=== PATIENT | female | born 1970 | race Caucasian/White ===

== ENCOUNTER 2016-06-27 23:17 | Emergency (ER) | payer OTHER ==
[2016-06-27 23:28] VITALS: RESP 18
[2016-06-27] MEDS ORDERED: MORPHINE SULFATE 2 MG/ML SYRINGE IVP STA (23:34)
[2016-06-27] MEDS ORDERED: ONDANSETRON 4 MG/2 ML VIAL IVP STA (23:34)
[2016-06-27] MEDS ORDERED: RX INFO: IV CONTRAST WAS GIVEN 1 EACH MISC MISCELLANE PRN (23:34)
[2016-06-27] MEDS ORDERED: SODIUM CHLORIDE 0.9% 1,000 ML IV STA (23:34)
--- NOTE | 2016-06-27 23:43 | ED ---
General Adult HPI - General Chief complaint: Abdominal Pain Stated complaint: Abd Pain Time Seen by Provider: 06/27/16 23:19 Source: patient, RN notes reviewed Mode of arrival: ambulatory Limitations: no limitations - History of Present Illness Initial comments: 45-year-old female presents emergency Department with chief complaint of abdominal discomfort, diarrhea and headaches. Patient states that she's been having increasing headaches the last few months. Patient states she has not seen anybody for these headaches. She states she does have a history of MS and has repeat MRIs every year though she's not had one in almost over a year. Patient states her diffuse headaches and states that she takes Advil for it though they're so severe she said to hold screenings. states she has visual loss secondary to her MS which is chronic she has known Q changes. Denies any focal weakness at this time. Patient denies fever, chills, neck stiffness. Patient states that over the last 2 days she's had severe diarrhea. Patient denies any antibiotic use or traveling. She states she had a bout of this over the summer which resolved by itself. Patient states that she has left lower quadrant abdominal discomfort. She denies any history of diverticulitis. Denies any dysuria, hematuria. Denies any vaginal bleeding or vaginal discharge. - Related Data Home Medications Medication Instructions Recorded Confirmed Avonex 1 injection IM TU@1900 10/02/14 04/06/16 FLUoxetine HCL [PROzac] 60 mg PO QAM 10/02/14 04/06/16 Ferrous Sulfate [Feosol] 325 mg PO BID 10/02/14 04/06/16 Insulin Glargine [Lantus] 10 units SQ QAM 10/02/14 04/06/16 Lisinopril [Prinivil] 20 mg PO QAM 10/02/14 04/06/16 Pravastatin Sodium [Pravachol] 20 mg PO HS 10/02/14 04/06/16 clonazePAM [Clonazepam] 1 mg PO HS 10/02/14 04/06/16 lamoTRIgine [LaMICtal] 100 mg PO HS 10/02/14 04/06/16 metFORMIN HCL [Glucophage] 1,000 mg PO AC-BID 10/02/14 04/06/16 sitaGLIPtin [Januvia] 100 mg PO DAILY 10/02/14 04/06/16 amLODIPine [Norvasc] 5 mg PO HS 12/06/14 04/06/16 Gabapentin [Neurontin] 400 mg PO TID 03/02/15 04/06/16 Insulin Glargine [Lantus] 40 unit SQ HS 03/02/15 04/06/16 Aspirin 81 mg PO DAILY 08/21/15 04/06/16 lamoTRIgine [LaMICtal] 150 mg PO QAM 08/21/15 04/06/16 Glimepiride [Amaryl] 2 mg PO BID 10/29/15 04/06/16 Previous Rx's Medication Instructions Recorded Dicyclomine [Bentyl] 10 mg PO TID #20 capsule 01/17/16 Metoclopramide HCl [Reglan] 10 mg PO Q8H #10 tablet 01/17/16 Cephalexin [Keflex] 500 mg PO Q6HR #40 cap 04/06/16 Hydrocodone/Acetaminophen [[place] 1 tab PO Q6HR PRN #20 tab 04/06/16 5-325] Allergies Allergy/AdvReac Type Severity Reaction Status Date / Time No Known Allergies Allergy Verified 06/27/16 23:27 Review of Systems ROS Statement: Those systems with pertinent positive or pertinent negative responses have been documented in the HPI. ROS Other: All systems not noted in ROS Statement are negative. Past Medical History Past Medical History: Diabetes Mellitus, Hyperlipidemia, Hypertension Additional Past Medical History / Comment(s): M.S, anemia History of Any Multi-Drug Resistant Organisms: None Reported Past Surgical History: Tubal Ligation, Uterine Ablation Additional Past Surgical History / Comment(s): TEETH REMOVAL Past Psychological History: Anxiety, Bipolar, Depression Smoking Status: Current some day smoker Past Alcohol Use History: Rare Past Drug Use History: None Reported General Exam Limitations: no limitations General appearance: alert, in no apparent distress Head exam: Present: atraumatic, normocephalic, normal inspection Eye exam: Present: normal appearance, PERRL, EOMI. Absent: scleral icterus, conjunctival injection, periorbital swelling ENT exam: Present: mucous membranes moist, TM's normal bilaterally, other (No mastoid tenderness). Absent: normal oropharynx (Missing dentition) Neck exam: Present: normal inspection, full ROM. Absent: tenderness, meningismus, lymphadenopathy Respiratory exam: Present: normal lung sounds bilaterally. Absent: respiratory distress, wheezes, rales, rhonchi, stridor Cardiovascular Exam: Present: regular rate, normal rhythm, normal heart sounds. Absent: systolic murmur, diastolic murmur, rubs, gallop, clicks GI/Abdominal exam: Present: soft, tenderness (Moderate tenderness left lower quadrant), normal bowel sounds. Absent: distended, guarding, rebound, rigid Back exam: Absent: CVA tenderness (R), CVA tenderness (L) Neurological exam: Present: alert, oriented X3, CN II-XII intact, reflexes normal. Absent: motor sensory deficit Skin exam: Present: warm, dry, intact, normal color. Absent: rash Course Vital Signs 06/27/16 23:25 Temperature 97.9 F Pulse Rate 106 H Respiratory 18 Rate Blood Pressure 175/82 O2 Sat by Pulse 99 Oximetry Medical Decision Making - Medical Decision Making 45-year-old female presented for headaches, abdominal pain. Patient CT of the brain shows no acute abnormality's. Patient has headaches most likely related to her MS patient will follow-up with a neurologist. Patient CT of abdomen and pelvis does not show any evidence of diverticulitis or any other acute abnormality's. Patient has a viral diarrhea. Patient will be discharged with follow-up patient agreed to plan AND transfer. - Lab Data Result diagrams: 06/27/16 23:46 06/27/16 23:46 Lab Results 06/27/16 06/27/16 06/27/16 Range/Units 23:46 23:46 23:46 WBC 13.5 H (3.8-10.6) k/uL RBC 4.12 (3.80-5.40) m/uL Hgb 11.5 (11.4-16.0) gm/dL Hct 34.9 (34.0-46.0) % MCV 84.7 (80.0-100.0) fL MCH 27.8 (25.0-35.0) pg MCHC 32.8 (31.0-37.0) g/dL RDW 14.9 (11.5-15.5) % Plt Count 270 (150-450) k/uL Neutrophils % 69 % Lymphocytes % 23 % Monocytes % 4 % Eosinophils % 3 % Basophils % 1 % Neutrophils # 9.3 H (1.3-7.7) k/uL Lymphocytes # 3.2 (1.0-4.8) k/uL Monocytes # 0.5 (0-1.0) k/uL Eosinophils # 0.4 (0-0.7) k/uL Basophils # 0.1 (0-0.2) k/uL Sodium 137 (137-145) mmol/L Potassium 4.8 (3.5-5.1) mmol/L Chloride 102 (98-107) mmol/L Carbon Dioxide 23 (22-30) mmol/L Anion Gap 12 mmol/L BUN 24 H (7-17) mg/dL Creatinine 1.20 H (0.52-1.04) mg/dL Est GFR (MDRD) Af Amer 59 (>60 ml/min/1.73 sqM) Est GFR (MDRD) Non-Af 49 (>60 ml/min/1.73 sqM) Glucose 247 H (74-99) mg/dL Calcium 9.2 (8.4-10.2) mg/dL Total Bilirubin 0.2 (0.2-1.3) mg/dL AST 20 (14-36) U/L ALT 35 (9-52) U/L Alkaline Phosphatase 130 H (38-126) U/L Total Protein 6.6 (6.3-8.2) g/dL Albumin 3.9 (3.5-5.0) g/dL Amylase 35 (30-110) U/L Lipase 155 (23-300) U/L Urine Color Light Yellow Urine Appearance Clear (Clear) Urine pH 5.5 (5.0-8.0) Ur Specific [place] 1.007 (1.001-1.035) Urine Protein 2+ H (Negative) Urine Glucose (UA) Negative (Negative) Urine Ketones Negative (Negative) Urine Blood Small H (Negative) Urine Nitrate Negative (Negative) Urine Bilirubin Negative (Negative) Urine Urobilinogen <2.0 (<2.0) mg/dL Ur Leukocyte Esterase Small H (Negative) Urine RBC 2 (0-5) /hpf Urine WBC 2 (0-5) /hpf Ur Squamous Epith Cells 3 (0-4) /hpf Urine Bacteria Rare H (None) /hpf Urine Mucus Rare H (None) /hpf Disposition Clinical Impression: Diarrhea, Abdominal pain, Frequent headaches Disposition: HOME SELF-CARE Condition: Stable Instructions: Acute Diarrhea (ED) Additional Instructions: Please return to the Emergency Department if symptoms worsen or any other concerns. Time of Disposition: 00:48
[2016-06-27 23:59] LABS: Basophils # (A) 0.1 k/uL (0-0.2); Basophils % (A) 1 %; CH 28.3; CHCM 33.6; Eosinophils # (A) 0.4 k/uL (0-0.7); Eosinophils % (A) 3 %; HCT 34.9 % (34.0-46.0); HDW 2.86; HGB 11.5 gm/dL (11.4-16.0); Luc # (Auto) 0.12; Luc % (Auto) 1; Lymphocytes # (A) 3.2 k/uL (1.0-4.8); Lymphocytes % (A) 23 %; MCH 27.8 pg (25.0-35.0); MCHC 32.8 g/dL (31.0-37.0); MCV 84.7 fL (80.0-100.0); Mean Platelet Volume 7.1; Monocytes # (A) 0.5 k/uL (0-1.0); Monocytes % (A) 4 %; Neutrophils # (A) 9.3 k/uL (1.3-7.7); Neutrophils % (A) 69 %; RBC 4.12 m/uL (3.80-5.40); RDW 14.9 % (11.5-15.5); WBC 13.5 k/uL (3.8-10.6); WBC (Perox) 13.71
[2016-06-28 00:11] LABS: Calcium 9.2 mg/dL (8.4-10.2); Potassium 4.8 mmol/L (3.5-5.1); Total Bilirubin 0.2 mg/dL (0.2-1.3); Total Protein 6.6 g/dL (6.3-8.2)
[2016-06-28 00:18] LABS: Appearance,Urine Clear (Clear); Bacteria,Urine Rare /hpf; Bilirubin,Urine Negative (Negative); Glucose,Urine (UA) Negative (Negative); Ketones,Urine Negative (Negative); Leukocyte Esterase,Urine Small (Negative); Mucus,Urine Rare /hpf; Nitrite,Urine Negative (Negative); PH, Urine 5.5 (5.0-8.0); Particle Count 1814; Protein,Urine 2+ (Negative); RBC,Urine 2 /hpf (0-5); Specific Gravity,Urine 1.007 (1.001-1.035); Squamous Epithelial Cell,Urine 3 /hpf (0-4); UA Billing (MACRO vs. MICRO) MICRO; Urobilinogen,Urine <2.0 mg/dL (<2.0); WBC,Urine 2 /hpf (0-5)
--- NOTE | 2016-06-28 00:25 | CT ---
EXAMINATION TYPE: CT brain wo con DATE OF EXAM: 06/28/2016 12:19 AM COMPARISON: 08/21/2015 HISTORY: headache/MS CT DLP: 1029.90 mGycm Automated exposure control for dose reduction was used. FINDINGS: There is hypodensity in the white matter around the occipital horn of the left lateral ventricle. The re is no mass effect or midline shift. There is no sign of intracranial hemorrhage. There is a 1 cm h ypodensity at the locke-white matter junction left posterior parietal lobe. The calvarium is intact. IMPRESSION: Hypodense white matter as above. 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 This appears stable compared to 08/21/2015. Hypodense left posterior parietal white matter focus i s stable and could relate to infarct or demyelinating disease. No acute intracranial abnormality seen .
--- NOTE | 2016-06-28 00:28 | CT ---
EXAMINATION TYPE: CT abdomen pelvis w con DATE OF EXAM: 06/28/2016 12:21 AM COMPARISON: 08/21/2015 HISTORY: Left sided abd pain CT DLP: 1729.20 mGycm Automated exposure control for dose reduction was used. TECHNIQUE: Helical acquisition of images was performed from the lung bases through the pelvis. CONTRAST: Performed without Oral Contrast and with IV Contrast, patient injected with 100 mL of Omnipaque 300. FINDINGS: The lung bases are clear. There is no pleural effusion. Liver spleen pancreas and gallbladder appear normal. Bile ducts are not dilated. There is no adrenal mass. There is normal contrast opacification of the kidneys. There is no hydronephrosis. There is no retroperitoneal adenopathy. There is no ascit es. Appendix appears normal. I see no intestinal wall thickening. There are no dilated loops. There a re clips from tubal ligation. Latter distends smoothly. There is no evidence of a pelvic mass. I see no bony destructive process. IMPRESSION: NEGATIVE CT SCAN OF THE ABDOMEN AND PELVIS. NO ADVERSE CHANGE COMPARED TO OLD EXAM.
[2016-06-28 00:56] VITALS: BP 175/79; PULSE 91; TEMP 97.7
== END 2016-06-28 00:57 | disposition home or self-care (01) ==
LOC: EC 23:17
DX: A08.4 Viral intestinal infection, unspecified (principal); R10.9 Unspecified abdominal pain; R51 Headache; G35 Multiple sclerosis; E78.5 Hyperlipidemia, unspecified; I10 Essential (primary) hypertension; D64.9 Anemia, unspecified; H54.7 Unspecified visual loss; E11.9 Type 2 diabetes mellitus without complications; F32.9 Major depressive disorder, single episode, unspecified; Z79.899 Other long term (current) drug therapy; Z79.4 Long term (current) use of insulin; Z79.82 Long term (current) use of aspirin; F17.200 Nicotine dependence, unspecified, uncomplicated
CPT/HCPCS: 36415; 80053; 82150; 83690; 85025; 81001; 70450; 74177; 96374; 96375; 99284; 96360; J2405; J2270; Q9967

== ENCOUNTER → 2016-08-07 | Outpatient (CLI) | payer OTHER ==
--- NOTE | 2016-08-07 12:32 | MR ---
EXAMINATION TYPE: MR brain wo/w con DATE OF EXAM: 08/07/2016 9:40 AM COMPARISON: Prior MRI brain October 30, 2015. HISTORY: MS, F/U TECHNIQUE: Multiplanar, multisequence images of the brain and brainstem is performed without and with IV contras t, utilizing 20 mL intravenous MultiHance gadolinium contrast is administered intravenously. Demyeli nating disease protocol with additional Sagittal Flair sequence performed. FINDINGS: T2 Lesions Present : Yes Approximate Number of Lesions: Difficult to accurately count due to confluent periventricular appeara nce, estimate approximately 15 lesions redemonstrated Locations Identified : Predominantly periventricular and pericallosal involvement redemonstrated. Size of Reference Lesion(s): 1. 1.1 cm x 0.9 cm on axial image 20 and sagittal image 14 left parietal-occipital periventricular l esion stable 2 0.8 cm x 0.6 cm x 0.8 cm on axial image 23 and sagittal image 24 posterior deep right frontal les ion stable. Enhancing Lesion(s) Present: No T1 Hypointense Lesion(s) Present: Yes Change from Prior: Stable Diffusion weighted images demonstrate no evidence of a recent infarct or other diffusion abnormality. There is no worrisome extra-axial fluid collection. The ventricular system and cisternal spaces ar e normal in size and appearance. The brain volume is age appropriate. There is old area of infarct l eft occipital lobe redemonstrated. Midline structures demonstrate normal morphology. The craniocervical junction appears within normal limits. Post contrast images demonstrate no abnormal enhancement. The dural venous sinuses appear pa tent. There is new mild to moderate mucosal thickening involving the ethmoid and maxillary sinuses bi laterally as well as involving the right frontal sinus. The globes are intact bilaterally. IMPRESSION: 1. Moderate white matter changes likely on basis of patient's known multiple sclerosis redemonstrated felt stable without new or enhancing lesions seen. 2. New chronic paranasal sinus disease noted as detailed above.
== END | disposition home or self-care (01) ==
LOC: RADMRIMAIN 08:21
PROVIDERS: ATTEND Psychiatry & Neurology Neurology
DX: R90.82 White matter disease, unspecified (principal)
CPT/HCPCS: 70553; A9577

== ENCOUNTER 2016-12-21 05:40 | Inpatient (IN) | payer OTHER ==
[2016-12-21] MEDS ORDERED: SODIUM CHLORIDE 0.9% 500 ML IV STA (06:03)
[2016-12-21] MEDS ORDERED: PANTOPRAZOLE 40 MG/10 ML VIAL IVP STA (06:03)
[2016-12-21] MEDS ORDERED: ONDANSETRON ODT 8 MG TAB.RAPDIS PO STA (06:03)
[2016-12-21] MEDS ORDERED: SODIUM CHLORIDE 0.9% 1,000 ML IV STA (06:03)
[2016-12-21 06:14] LABS: Basophils % (A) 0 %; CH 28.7; Eosinophils # (A) 0.3 k/uL (0-0.7); Eosinophils % (A) 3 %; HCT 33.5 % (34.0-46.0); HDW 3.01; HGB 11.6 gm/dL (11.4-16.0); Luc # (Auto) 0.12; Luc % (Auto) 1; Lymphocytes # (A) 2.6 k/uL (1.0-4.8); Lymphocytes % (A) 24 %; MCH 29.4 pg (25.0-35.0); MCHC 34.7 g/dL (31.0-37.0); MCV 84.6 fL (80.0-100.0); Mean Platelet Volume 6.7; Monocytes # (A) 0.5 k/uL (0-1.0); Monocytes % (A) 5 %; Neutrophils # (A) 7.4 k/uL (1.3-7.7); Neutrophils % (A) 68 %; RBC 3.96 m/uL (3.80-5.40); RDW 14.4 % (11.5-15.5); WBC (Perox) 11.15
[2016-12-21 06:22] LABS: ALT 40 U/L (9-52); AST 18 U/L (14-36); Alkaline Phosphatase 130 U/L (38-126); Amylase 36 U/L (30-110); Anion Gap 12 mmol/L; Blood Urea Nitrogen 29 mg/dL (7-17); Calcium 9.4 mg/dL (8.4-10.2); Carbon Dioxide 22 mmol/L (22-30); Chloride 104 mmol/L (98-107); Glucose 218 mg/dL (74-99); Non-African American GFR(MDRD) 53 (>60 ml/min/1.73 sqM); Potassium 4.6 mmol/L (3.5-5.1); Sodium 138 mmol/L (137-145); Total Bilirubin 0.2 mg/dL (0.2-1.3); Total Protein 6.8 g/dL (6.3-8.2)
--- NOTE | 2016-12-21 06:23 | ED ---
General Adult HPI - General Chief complaint: Nausea/Vomiting/Diarrhea Stated complaint: Vomiting/Swelling Legs/Feet Time Seen by Provider: 12/21/16 06:02 Source: patient, RN notes reviewed, old records reviewed Mode of arrival: ambulatory Limitations: no limitations - History of Present Illness Initial comments: This is a 46-year-old female in the ER for evaluation of severe abdominal pain nausea vomiting. Patient has no prior history of similar issues. Denies fever or surgical history. She has been taking Augmentin for this pain with no help. Unknown exact exact cause or reason for taking Augmentin. Patient denies drugs or alcohol. Denies family members with similar symptoms patient does have history of diabetes have blood pressure high cholesterol. Patient also suffers from MS, patient's main complaint today is lower extremity edema severe pain numbness tingling or weakness. Patient's concern for severe MS exacerbation and would like to see Dr. [place] - Related Data Home Medications Medication Instructions Recorded Confirmed Avonex 1 injection IM TU@1900 10/02/14 12/21/16 Ferrous Sulfate [Feosol] 325 mg PO BID 10/02/14 12/21/16 Insulin Glargine [Lantus] 15 units SQ QAM 10/02/14 12/21/16 Lisinopril [Prinivil] 20 mg PO QAM 10/02/14 12/21/16 Pravastatin Sodium [Pravachol] 20 mg PO HS 10/02/14 12/21/16 clonazePAM [Clonazepam] 1 mg PO HS 10/02/14 12/21/16 lamoTRIgine [LaMICtal] 100 mg PO HS 10/02/14 12/21/16 metFORMIN HCL [Glucophage] 1,000 mg PO AC-BID 10/02/14 12/21/16 sitaGLIPtin [Januvia] 100 mg PO DAILY 10/02/14 12/21/16 amLODIPine [Norvasc] 5 mg PO HS 12/06/14 12/21/16 Gabapentin [Neurontin] 400 mg PO TID 03/02/15 12/21/16 Insulin Glargine [Lantus] 40 unit SQ HS 03/02/15 12/21/16 Aspirin 81 mg PO DAILY 08/21/15 12/21/16 lamoTRIgine [LaMICtal] 150 mg PO QAM 08/21/15 12/21/16 Glimepiride [Amaryl] 2 mg PO BID 10/29/15 12/21/16 Amitriptyline HCl [Elavil] 25 mg PO HS 07/22/16 12/21/16 Previous Rx's Medication Instructions Recorded Metoclopramide HCl [Reglan] 10 mg PO Q8H #10 tablet 01/17/16 Hydrocodone/Acetaminophen [[place] 1 tab PO Q6HR PRN #20 tab 04/06/16 5-325] Allergies Allergy/AdvReac Type Severity Reaction Status Date / Time No Known Allergies Allergy Verified 12/21/16 05:45 Review of Systems ROS Statement: Those systems with pertinent positive or pertinent negative responses have been documented in the HPI. ROS Other: All systems not noted in ROS Statement are negative. Past Medical History Past Medical History: Diabetes Mellitus, Hyperlipidemia, Hypertension Additional Past Medical History / Comment(s): MS, anemia History of Any Multi-Drug Resistant Organisms: None Reported Past Surgical History: Tubal Ligation, Uterine Ablation Additional Past Surgical History / Comment(s): TEETH REMOVAL Past Psychological History: Anxiety, Bipolar, Depression Smoking Status: Former smoker General Exam Limitations: no limitations General appearance: alert, in no apparent distress Head exam: Present: atraumatic, normocephalic, normal inspection Eye exam: Present: normal appearance, PERRL, EOMI. Absent: scleral icterus, conjunctival injection, periorbital swelling ENT exam: Present: normal exam, mucous membranes moist Neck exam: Present: normal inspection. Absent: tenderness, meningismus, lymphadenopathy Respiratory exam: Present: normal lung sounds bilaterally. Absent: respiratory distress, wheezes, rales, rhonchi, stridor Cardiovascular Exam: Present: regular rate, normal rhythm, normal heart sounds. Absent: systolic murmur, diastolic murmur, rubs, gallop, clicks GI/Abdominal exam: Present: soft, normal bowel sounds. Absent: distended, tenderness, guarding, rebound, rigid Extremities exam: Present: normal inspection, full ROM, normal capillary refill. Absent: tenderness, pedal edema, joint swelling, calf tenderness Back exam: Present: normal inspection Neurological exam: Present: alert, oriented X3, CN II-XII intact Psychiatric exam: Present: normal affect, normal mood Skin exam: Present: warm, dry, intact, normal color. Absent: rash Course Vital Signs 12/21/16 12/21/16 05:42 06:53 Temperature 97.4 F L Pulse Rate 92 88 Respiratory 18 18 Rate Blood Pressure 210/95 163/75 O2 Sat by Pulse 100 97 Oximetry Medical Decision Making - Medical Decision Making [id number] with history of MS coming with MS exacerbations secondary to lower extremity pain and paresthesias. Patient will be admitted for neurological evaluation - Lab Data Result diagrams: 12/21/16 06:05 12/21/16 06:05 Lab Results 12/21/16 12/21/16 12/21/16 Range/Units 06:05 06:05 06:05 WBC 11.0 H (3.8-10.6) k/uL RBC 3.96 (3.80-5.40) m/uL Hgb 11.6 (11.4-16.0) gm/dL Hct 33.5 L (34.0-46.0) % MCV 84.6 (80.0-100.0) fL MCH 29.4 (25.0-35.0) pg MCHC 34.7 (31.0-37.0) g/dL RDW 14.4 (11.5-15.5) % Plt Count 333 (150-450) k/uL Neutrophils % 68 % Lymphocytes % 24 % Monocytes % 5 % Eosinophils % 3 % Basophils % 0 % Neutrophils # 7.4 (1.3-7.7) k/uL Lymphocytes # 2.6 (1.0-4.8) k/uL Monocytes # 0.5 (0-1.0) k/uL Eosinophils # 0.3 (0-0.7) k/uL Basophils # 0.0 (0-0.2) k/uL Sodium 138 (137-145) mmol/L Potassium 4.6 (3.5-5.1) mmol/L Chloride 104 (98-107) mmol/L Carbon Dioxide 22 (22-30) mmol/L Anion Gap 12 mmol/L BUN 29 H (7-17) mg/dL Creatinine 1.10 H (0.52-1.04) mg/dL Est GFR (MDRD) Af Amer >60 (>60 ml/min/1.73 sqM) Est GFR (MDRD) Non-Af 53 (>60 ml/min/1.73 sqM) Glucose 218 H (74-99) mg/dL Plasma Lactic Acid [place] (0.7-2.0) mmol/L Calcium 9.4 (8.4-10.2) mg/dL Total Bilirubin 0.2 (0.2-1.3) mg/dL AST 18 (14-36) U/L ALT 40 (9-52) U/L Alkaline Phosphatase 130 H (38-126) U/L Total Creatine Kinase 72 (30-135) U/L CK-MB (CK-2) 2.0 (0.0-2.4) ng/mL CK-MB (CK-2) Rel Index 2.8 Troponin I <0.012 (0.000-0.034) ng/mL Total Protein 6.8 (6.3-8.2) g/dL Albumin 4.1 (3.5-5.0) g/dL Amylase 36 (30-110) U/L Lipase 171 (23-300) U/L Urine Color Urine Appearance (Clear) Urine pH (5.0-8.0) Ur Specific [place] (1.001-1.035) Urine Protein (Negative) Urine Glucose (UA) (Negative) Urine Ketones (Negative) Urine Blood (Negative) Urine Nitrite (Negative) Urine Bilirubin (Negative) Urine Urobilinogen (<2.0) mg/dL Ur Leukocyte Esterase (Negative) Urine RBC (0-5) /hpf Urine WBC (0-5) /hpf Ur Squamous Epith Cells (0-4) /hpf Urine HCG, Qual (Not Detectd) 12/21/16 12/21/16 12/21/16 Range/Units 06:05 06:10 06:10 WBC (3.8-10.6) k/uL RBC (3.80-5.40) m/uL Hgb (11.4-16.0) gm/dL Hct (34.0-46.0) % MCV (80.0-100.0) fL MCH (25.0-35.0) pg MCHC (31.0-37.0) g/dL RDW (11.5-15.5) % Plt Count (150-450) k/uL Neutrophils % % Lymphocytes % % Monocytes % % Eosinophils % % Basophils % % Neutrophils # (1.3-7.7) k/uL Lymphocytes # (1.0-4.8) k/uL Monocytes # (0-1.0) k/uL Eosinophils # (0-0.7) k/uL Basophils # (0-0.2) k/uL Sodium (137-145) mmol/L Potassium (3.5-5.1) mmol/L Chloride (98-107) mmol/L Carbon Dioxide (22-30) mmol/L Anion Gap mmol/L BUN (7-17) mg/dL Creatinine (0.52-1.04) mg/dL Est GFR (MDRD) Af Amer (>60 ml/min/1.73 sqM) Est GFR (MDRD) Non-Af (>60 ml/min/1.73 sqM) Glucose (74-99) mg/dL Plasma Lactic Acid [place] 0.9 (0.7-2.0) mmol/L Calcium (8.4-10.2) mg/dL Total Bilirubin (0.2-1.3) mg/dL AST (14-36) U/L ALT (9-52) U/L Alkaline Phosphatase (38-126) U/L Total Creatine Kinase (30-135) U/L CK-MB (CK-2) (0.0-2.4) ng/mL CK-MB (CK-2) Rel Index Troponin I (0.000-0.034) ng/mL Total Protein (6.3-8.2) g/dL Albumin (3.5-5.0) g/dL Amylase (30-110) U/L Lipase (23-300) U/L Urine Color Colorless Urine Appearance Clear (Clear) Urine pH 5.5 (5.0-8.0) Ur Specific [place] 1.005 (1.001-1.035) Urine Protein 2+ H (Negative) Urine Glucose (UA) Negative (Negative) Urine Ketones Negative (Negative) Urine Blood Trace H (Negative) Urine Nitrite Negative (Negative) Urine Bilirubin Negative (Negative) Urine Urobilinogen <2.0 (<2.0) mg/dL Ur Leukocyte Esterase Trace H (Negative) Urine RBC 1 (0-5) /hpf Urine WBC <1 (0-5) /hpf Ur Squamous Epith Cells 1 (0-4) /hpf Urine HCG, Qual Not Detected (Not Detectd) Disposition Clinical Impression: Exacerbation of multiple sclerosis Disposition: ADMITTED IP TO THIS HOSP Condition: Fair Referrals: Aruna Boateng MD [Primary Care Provider] - 1-2 days
[2016-12-21 06:29] LABS: Appearance,Urine Clear (Clear); Bilirubin,Urine Negative (Negative); Glucose,Urine (UA) Negative (Negative); Ketones,Urine Negative (Negative); Leukocyte Esterase,Urine Trace (Negative); Nitrite,Urine Negative (Negative); PH, Urine 5.5 (5.0-8.0); Particle Count 1950; Protein,Urine 2+ (Negative); RBC,Urine 1 /hpf (0-5); Specific Gravity,Urine 1.005 (1.001-1.035); Squamous Epithelial Cell,Urine 1 /hpf (0-4); UA Billing (MACRO vs. MICRO) MICRO; Urobilinogen,Urine <2.0 mg/dL (<2.0); WBC,Urine <1 /hpf (0-5)
[2016-12-21 06:39] LABS: Creatine Kinase 72 U/L (30-135)
[2016-12-21 06:52] LABS: Troponin I <0.012 ng/mL (0.000-0.034)
[2016-12-21] MEDS ORDERED: methylPREDNISolone SOD SUCCI 250 MG in SODIUM CHLORIDE 0.9% 100 ML IVPB STA (07:11)
[2016-12-21] MEDS ORDERED: MORPHINE SULFATE 4 MG/ML SYRINGE IVP PRN (07:12)
[2016-12-21] MEDS ORDERED: MORPHINE SULFATE 4 MG/ML SYRINGE IVP STA (07:12)
--- NOTE | 2016-12-21 07:39 | XR ---
EXAM: XR Abdomen Complete, 2 or More Views CLINICAL HISTORY: Reason: abdominal pain TECHNIQUE: Frontal view of the abdomen/pelvis with upright view of the abdomen. COMPARISON: CT 06/28/16 and KUB 01/17/16. FINDINGS: Intraperitoneal space: No free air. Gastrointestinal tract: Moderate fecal loading. No dilation. Bones/joints: Multilevel degenerative changes of the spine. Pelvis: Tubal ligation clips seen. IMPRESSION: Moderate fecal loading.
--- NOTE | 2016-12-21 07:55 | US ---
EXAMINATION TYPE: US gallbladder DATE OF EXAM: 12/21/2016 COMPARISON: NONE CLINICAL HISTORY: 46-year-old female Nausea and vomiting. TECHNIQUE: Multiple sonographic images of the right upper quadrant are obtained. FINDINGS: CONSTRUCTION AND MAINTENANCE INSPECTOR NOTES: Morbidly obese patient, technically difficult and limited study. Liver Length: 19.1 cm Gallbladder Wall: 0.2 cm CBD: 2.3 mm Right Kidney: 11.3 x 4.6 x 4.5 cm Pancreas: Obscured by bowel gas Liver: Large and markedly echogenic and attenuating. This secondary limits assessment for focal lesio n. Gallbladder: No abnormal distention, wall thickening, pericholecystic fluid, or shadowing calculi. Evidence for sonographic Langston's sign: No CBD: not well visualized, visualized segment within normal limits. Right Kidney: No hydronephrosis. IMPRESSION: Hepatomegaly and severe hepatic steatosis. Correlate with LFTs, lipid profile, and patient risk facto rs.
[2016-12-21] MEDS: SODIUM CHLORIDE 0.9% 1,000 ML IV ONE ×2 (08:22→18:34)
[2016-12-21] MEDS ORDERED: LINAGLIPTIN 5 MG TABLET PO SCH (09:00)
[2016-12-21] MEDS ORDERED: Acetaminophen-Codeine 300-30mg TAB PO PRN (09:05)
[2016-12-21 09:22] VITALS: BMI 41.4
--- NOTE | 2016-12-21 11:01 | US ---
EXAMINATION TYPE: US venous doppler duplex LE BI DATE OF EXAM: 12/21/2016 10:09 AM COMPARISON: NONE CLINICAL HISTORY: 46-year-old female with Swelling SIDE PERFORMED: Bilateral TECHNIQUE: The lower extremity deep venous system is examined utilizing real time linear array sonog endy with graded compression, doppler sonography and color-flow sonography. FINDINGS: SENIOR NET PROGRAMMER NOTES: Morbidly obese patient. VESSELS IMAGED: External Iliac Vein (EIV) Common Femoral Vein Deep Femoral Vein Greater Saphenous Vein * Femoral Vein Popliteal Vein Small Saphenous Vein * Proximal Calf Veins (* superficial vessels) Right Leg: Negative for DVT Left Leg: Negative for DVT IMPRESSION: No evidence for DVT within the bilateral lower extremities imaged from the groin to the upper calves.
[2016-12-21] MEDS: INSULIN GLARGINE 100 UNIT/ML 10 ML VIAL SQ SCH (11:11)
[2016-12-21] MEDS: ENOXAPARIN 40 MG/0.4 ML SYRINGE SQ SCH (11:14)
[2016-12-21] MEDS: metFORMIN 500 MG TAB PO SCH ×2 (11:15→17:57)
[2016-12-21] MEDS: LINAGLIPTIN 5 MG TABLET PO SCH (12:22)
[2016-12-21] MEDS: LISINOPRIL 20 MG TAB PO SCH (12:22)
[2016-12-21 12:37] LABS: Glucose,Whole Blood 332 mg/dL (75-99)
[2016-12-21] MEDS: METOCLOPRAMIDE 10 MG TAB PO SCH ×3 (12:39→21:12)
[2016-12-21] MEDS ORDERED: INSULIN LISPRO (humaLOG) 300 UNIT/3 ML VIAL SQ ONE ×2 (12:46→15:16)
[2016-12-21] MEDS: INSULIN LISPRO (humaLOG) 300 UNIT/3 ML VIAL SQ SCH ×4 (13:02→21:16)
--- NOTE | 2016-12-21 13:40 | P.HPIM ---
History of Present Illness H&P Date: 12/21/16 Chief Complaint: Intractable nausea and vomiting, possible MS exacerbation, increased edema. 46-year-old obese female [address] Lundberg's patient with past medical history of multiple sclerosis along with diabetes hypertension chronic neuropathy. Patient seen Dr. negron neurology on regular basis for MS was seen last 3 months ago. Patient has been on Avonex injection for MS and has been stable to the last few days. Patient developed to have for the last 2 weeks worsening abdominal discomfort along with nausea vomiting and mild diarrhea with significant swelling of the lower extremity achiness in the feet and her body overall. Patient was seen by her primary care physician and placed on H2 alex did not make much different continue having symptoms. Patient presented to the emergency department at [facility] with the above problem along with significant increased weakness of the lower extremity patient was diagnosed with exacerbation of her multiple sclerosis admitted to the hospital on high dose of steroid along with GI workup for her current intractable nausea and vomiting. Review of Systems Constitutional: Reports chronic headaches, Reports chronic pain, Reports fatigue , Reports lethargy, Reports weakness, Reports weight gain, Denies as per HPI, Denies anorexia, Denies chills, Denies daytime sleepiness, Denies fever, Denies malaise, Denies night sweats, Denies poor appetite, Denies sweats, Denies weight loss Eyes: bilateral as per HPI Ears: bilateral: decreased hearing Ears, nose, mouth and throat: Reports ant. neck pain, Reports nasal congestion, Reports nasal discharge, Reports sinus pressure, Reports swelling in throat, Denies as per HPI, Denies bleeding gums, Denies dental pain, Denies dysphagia, Denies epistaxis, Denies headache, Denies hoarseness, Denies mouth pain, Denies neck fullness/pressure, Denies neck lump, Denies nose pain, Denies odynophagia, Denies post-nasal drip, Denies sinus pain, Denies swelling in mouth, Denies sore throat, Denies vertigo, Denies voice changes Breasts: bilateral: as per HPI Cardiovascular: Reports dyspnea on exertion, Reports edema, Reports high blood pressure, Reports lightheadedness, Reports palpitations, Reports rapid heart beat, Reports shortness of breath, Denies as per HPI, Denies chest pain, Denies claudication, Denies decreased exercise tolerance, Denies irregular heart beat, Denies leg edema, Denies orthopnea, Denies paroxysmal nocturnal dyspnea, Denies phlebitis, Denies syncope Respiratory: Reports congestion, Reports cough, Reports dyspnea, Reports respiratory infections, Reports sleep apnea, Reports snoring, Denies as per HPI , Denies cough with sputum, Denies excessive sputum, Denies hemoptysis, Denies home oxygen, Denies pain, Denies pain on inspiration, Denies pleurisy, Denies wheezing Gastrointestinal: Reports abdominal pain, Reports bloating, Reports change in bowel habits, Reports diarrhea, Reports dyspepsia, Reports early satiety, Reports heartburn, Reports indigestion, Reports loss of appetite, Reports nausea , Reports vomiting, Denies as per HPI, Denies belching, Denies BRBPR, Denies coffee ground emesis, Denies constipation, Denies excessive gas, Denies hematemesis, Denies hematochezia, Denies jaundice, Denies lactose intolerance, Denies melena Genitourinary: Reports urge incontinence, Reports urgency, Reports urinary frequency, Denies as per HPI, Denies abnormal vaginal bleeding, Denies decreased libido, Denies difficulty conceiving, Denies difficulty voiding, Denies dysmenorrhea, Denies dyspareunia, Denies dysuria, Denies flank pain, Denies genital sores, Denies hematuria, Denies hot flashes, Denies incomplete emptying, Denies kidney stones, Denies menorrhagia, Denies mixed incontinence, Denies nocturia, Denies pelvic pain, Denies post void dribbling, Denies , Denies prolapse symptoms, Denies stress incontinence, Denies vaginal discharge , Denies vaginal dryness, Denies vaginal itching, Denies vaginal odor Musculoskeletal: Reports frequent falls, Reports gait dysfunction, Reports loss of height, Reports low back pain, Reports myalgias, Reports neck pain, Reports neck stiffness, Denies as per HPI, Denies arm numbness/tingling, Denies atrophy , Denies fractures, Denies hot joints, Denies leg numbness/tingling, Denies limitation of motion, Denies morning stiffness, Denies muscle cramps, Denies muscle weakness, Denies prior amputations, Denies redness of joints, Denies shooting arm pain, Denies shooting leg pain Integumentary: Reports pruritus, Reports rash, Denies as per HPI, Denies acne, Denies boils, Denies brittle nails, Denies change in hair/nails, Denies color changes, Denies darkening of skin, Denies depigmentation, Denies dryness, Denies foot/leg ulcers, Denies growths, Denies hirsutism, Denies lesions, Denies onychomycosis, Denies sores, Denies striae, Denies unusual bruising, Denies wounds Neurological: Reports ataxia, Reports change in smell/taste, Reports gait dysfunction, Reports lack of coordination, Reports paresthesias, Reports tingling, Reports weakness, Denies as per HPI, Denies aphasia, Denies balance difficulties, Denies burning pain, Denies change in mentation, Denies change in speech, Denies confusion, Denies convulsions, Denies double vision, Denies head injury, Denies headaches, Denies hearing difficulties, Denies loss of vision, Denies memory loss, Denies migraines, Denies motor disturbance, Denies numbness , Denies paralysis, Denies seizures, Denies sensory deficit, Denies spasticity, Denies syncope, Denies tic, Denies transient paralysis, Denies tremors, Denies vertigo, Denies visual changes Psychiatric: Reports anxiety, Reports anxiety attacks, Reports depression, Reports sadness/tearfulness, Denies as per HPI, Denies anhedonia, Denies change in appetite, Denies change in libido, Denies change in sleep habits, Denies confusion, Denies difficulty concentrating, Denies disorientation, Denies hallucinations, Denies hopelessness, Denies hypersomnia, Denies insomnia, Denies irritability, Denies memory loss, Denies mood swings, Denies paranoia, Denies sleep disturbances, Denies suicidal ideation Endocrine: Reports excessive sweating, Reports fatigue, Reports heat intolerance , Reports nocturia, Reports polyuria, Denies as per HPI, Denies cold intolerance , Denies deepening of the voice, Denies excessive thirst, Denies flushing, Denies high blood sugars, Denies increase in ring/shoe/hat size, Denies low blood sugars, Denies palpitations, Denies polydipsia, Denies polyphagia, Denies proptosis, Denies recent glucocorticoid use, Denies thyroid mass, Denies weight change Hematologic/Lymphatic: Reports easy bruising, Denies as per HPI, Denies easy bleeding, Denies lymphadenopathy, Denies lymphedema, Denies thrombophilia Allergic/Immunologic: Reports allergic rhinitis, Denies as per HPI, Denies anaphylaxis, Denies angioedema, Denies gluten intolerance, Denies persistent infections, Denies seasonal allergies, Denies urticaria, Denies wheezing Past Medical History Past Medical History: Diabetes Mellitus, Hyperlipidemia, Hypertension Additional Past Medical History / Comment(s): MS, anemia, History of Any Multi-Drug Resistant Organisms: None Reported Past Surgical History: Tubal Ligation, Uterine Ablation Additional Past Surgical History / Comment(s): TEETH REMOVAL Past Psychological History: Anxiety, Bipolar, Depression Smoking Status: Former smoker - Past Family History Mother History Unknown: Yes Family Medical History: Congestive Heart Failure (CHF) Father History Unknown: Yes Family Medical History: Coronary Artery Disease (CAD), Myocardial Infarction (ND ) Medications and Allergies Home Medications Medication Instructions Recorded Confirmed Type Avonex 1 injection IM TU@1900 10/02/14 12/21/16 History Ferrous Sulfate [Feosol] 325 mg PO BID 10/02/14 12/21/16 History Insulin Glargine [Lantus] 15 units SQ QAM 10/02/14 12/21/16 History Lisinopril [Prinivil] 20 mg PO QAM 10/02/14 12/21/16 History lamoTRIgine [LaMICtal] 100 mg PO QAM 10/02/14 12/21/16 History metFORMIN HCL [Glucophage] 1,000 mg PO AC-BID 10/02/14 12/21/16 History sitaGLIPtin [Januvia] 100 mg PO DAILY 10/02/14 12/21/16 History amLODIPine [Norvasc] 5 mg PO HS 12/06/14 12/21/16 History Gabapentin [Neurontin] 400 mg PO TID 03/02/15 12/21/16 History Insulin Glargine [Lantus] 40 unit SQ HS 03/02/15 12/21/16 History Aspirin 81 mg PO DAILY 08/21/15 12/21/16 History Glimepiride [Amaryl] 2 mg PO QAM 10/29/15 12/21/16 History Amitriptyline HCl [Elavil] 25 mg PO HS 07/22/16 12/21/16 History Glimepiride [Amaryl] 4 mg PO AC-SUPPER 12/21/16 12/21/16 History Pravastatin Sodium [Pravachol] 40 mg PO HS 12/21/16 12/21/16 History lamoTRIgine [LaMICtal] 150 mg PO HS 12/21/16 12/21/16 History Allergies Allergy/AdvReac Type Severity Reaction Status Date / Time No Known Allergies Allergy Verified 12/21/16 09:24 Physical Exam Vitals: Vital Signs Temp Pulse Pulse Resp BP BP Pulse Ox 12/21/16 11:54 98.9 F 89 19 144/71 95 12/21/16 08:17 97.2 F L 84 19 148/75 94 L 12/21/16 08:01 97 F L 85 20 157/70 97 12/21/16 06:53 88 18 163/75 97 12/21/16 05:42 97.4 F L 92 18 210/95 100 Intake and Output 12/20/16 12/21/16 12/21/16 22:59 06:59 14:59 Other: # Voids 1 Weight 99.79 kg 106.1 kg Patient Weight 12/22/16 06:59 Weight 106.1 kg - Constitutional General appearance: no average body habitus, cooperative, disheveled, no mild distress, no morbidly obese, no acute distress, obese, no severe distress, no thin - EENT Eyes: abnormal pupil, no anicteric sclerae, no disc margins sharp, no edentulous , no EOMI, no PERRLA, no fundus normal, no photophobia, no dentition normal, no poor dentition, no ptosis, no scleral icterus, normal appearance ENT: no hard of hearing, no hearing grossly normal, no NA/AT, normal oropharynx , no other, no pharyngeal erythema, no thrush, no tonsillar exudates, no tonsillar swelling Ears: bilateral: normal - Neck Neck: no lymphadenopathy, normal ROM, no other, no rigidity, no stridor, no thyromegaly Carotids: bilateral: upstroke normal Thyroid: bilateral: normal size - Respiratory Respiratory: bilateral: diminished, dullness - Cardiovascular Rhythm: regular Heart sounds: normal: S1, S2 Abnormal Heart Sounds: systolic murmur - Gastrointestinal General gastrointestinal: no absent bowel sounds, no decreased bowel sounds, distended, no hepatomegaly, no hyperactive bowel sounds, normal bowel sounds, no organomegaly, no rigid, no scaphoid, soft, no splenomegaly, tenderness, umbilical hernia, no ventral hernia - Integumentary Integumentary: no calor, no cellulitis, no cyanotic, no decreased turgor, no flushed, no jaundiced, no normal, no normal turgor, pale, rash, no ulcer - Neurologic Neurologic: CNII-XII intact - Musculoskeletal Weakness of the lower extremity bilaterally with dropping foot bilaterally as well. Musculoskeletal: no gait normal, generalized weakness, no strength equal bilaterally, no right sided weakness, no left sided weakness - Psychiatric Psychiatric: A&O x's 3, appropriate affect Results CBC & Chem 7: 12/21/16 06:05 12/21/16 06:05 Labs: Abnormal Lab Results - Last 24 Hours (Table) 12/21/16 12/21/16 12/21/16 Range/Units 06:05 06:05 06:10 WBC 11.0 H (3.8-10.6) k/uL Hct 33.5 L (34.0-46.0) % BUN 29 H (7-17) mg/dL Creatinine 1.10 H (0.52-1.04) mg/dL Glucose 218 H (74-99) mg/dL POC Glucose (mg/dL) (75-99) mg/dL Alkaline Phosphatase 130 H (38-126) U/L Urine Protein 2+ H (Negative) Urine Blood Trace H (Negative) Ur Leukocyte Esterase Trace H (Negative) 12/21/16 Range/Units 12:32 WBC (3.8-10.6) k/uL Hct (34.0-46.0) % BUN (7-17) mg/dL Creatinine (0.52-1.04) mg/dL Glucose (74-99) mg/dL POC Glucose (mg/dL) 332 H (75-99) mg/dL Alkaline Phosphatase (38-126) U/L Urine Protein (Negative) Urine Blood (Negative) Ur Leukocyte Esterase (Negative) Microbiology - Last 24 Hours (Table) 12/21/16 06:10 Urine Culture - Preliminary Urine,Catheterized Thrombosis Risk Factor Assmnt - DVT/VTE Prophylaxis DVT/VTE Prophylaxis: Pharmacologic Prophylaxis ordered, Mechanical Prophylaxis ordered - Choose All That Apply Each Factor Represents 1 point: Age 41-60 years, Obesity (BMI >25), Swollen legs (current) Each Risk Factor Represents 3 Points: Family history of DVT/PE Thrombosis Risk Factor Assessment Total Risk Factor Score: 6 Thrombosis Risk Factor Assessment Level: High Risk Assessment and Plan Plan: 1 intractable nausea and vomiting: Most likely gastroparesis with her current history of diabetes and not control blood sugar in the last few month patient will be started on Reglan 5-10 mg before meals at bedtime along with pantoprazole daily Will follow her ultrasound and CAT scan to exclude any other possibility for any other abnormality further management might benefit from doing EGD and esophagram if needed. 2 significant edema and swelling of the lower extremity negative workup for DVT : Patient can benefit from being on diuretics rest knee-high PHILIPPE hose and stocking. 3 possible multiple sclerosis flareup: No evidence based for any focal deficit or worsening neuro deficit of any kind in the last few weeks just pain and achiness in the neuropathy which in my opinion does not be claim for multiple sclerosis flareup I will hold the IV steroids until neurology make their final conclusion after seen patient. 4 type 2 diabetes: None control continue patient on Januvia along with metformin Lantus and NovoLog titrate medication furthermore try to keep her blood sugar below 150 regularly. 5 hypertension: Has been doing well on Norvasc 5 mg a day and lisinopril 20 mg daily. 6 chronic neuropathy: Has been on gabapentin 400 mg 3 times a day and Elavil 25 mg daily at bedtime. 7 chronic depression has been on Elavil and Lamictal. 8 hyperlipidemia: Continue pravastatin 40 mg daily. Acute kidney injury at the aunt creatinine ratio continue hydration and watch patient's symptoms carefully. 10 Cintron: More fatty liver and a patch of stasis most likely from her diabetes hyperlipidemia liver ultrasound was done doesn't show any other finding hopefully being on Januvia and metformin will be helpful but need to be watched over time. 11 GI prophylaxis: Patient will be on Protonix. 12 DVT prophylaxis: Patient will be on heparin subcutaneous. CODE STATUS: Full code. Expectation from's admission: Patient be the hospital for more than 2 nights.
--- NOTE | 2016-12-21 14:18 | P.CNNES ---
History of Present Illness Consult date: 12/21/16 Requesting physician: Robb Ferrer Reason for Consult: MS exacerbation History of Present Illness: Patient is a pleasant 46-year-old female who is being evaluated today by the neurology service on 12/21/2016. The request of Dr. Ferrer for possible MS exacerbation. Patient has medical history of hypertension, diabetes mellitus , chronic neuropathy, and multiple sclerosis for which she takes Avonex injections weekly. Patient has been on Avonex for approximately 3 years now. Patient is known to us in the office. Patient reports having had nausea vomiting and diarrhea for the last few weeks. Patient saw PCP and was treated with Augmentin. Patient had recurrence of nausea vomiting and diarrhea and came to [facility] for further evaluation. Patient continues to complain of hypersensitivity of bilateral feet. Patient reports occasional lower extremity swelling which is new for her. Patient had MS exacerbation in July of this year and was sent for IV steroids which helped symptoms to subside. Patient does not describe symptoms consistent with MS exacerbation. Labs on admission were hemoglobin 11.6, hematocrit 33.5, WBC 11.0, and RBCs 3.9. BUN 29 and creatinine 1.10. Vital signs on admission were temperature 97.4, pulse 92, respiratory rate 18, and blood pressure 210/95. Oxygen saturation was 100% on room air. Patient ultrasound of the gallbladder and admission which showed hepatomegaly and severe hepatic steatosis. Bilateral venous Dopplers were done which showed no evidence for DVT. At the time of my evaluation, patient's resting comfortably in bed and appears to be in no acute distress. Review of Systems REVIEW OF SYSTEMS: Otherwise unremarkable and noncontributory. Past Medical History Past Medical History: Diabetes Mellitus, Hyperlipidemia, Hypertension Additional Past Medical History / Comment(s): MS, anemia, History of Any Multi-Drug Resistant Organisms: None Reported Past Surgical History: Tubal Ligation, Uterine Ablation Additional Past Surgical History / Comment(s): TEETH REMOVAL Past Psychological History: Anxiety, Bipolar, Depression Smoking Status: Former smoker - Past Family History Mother History Unknown: Yes Family Medical History: Congestive Heart Failure (CHF) Father History Unknown: Yes Family Medical History: Coronary Artery Disease (CAD), Myocardial Infarction (DC ) Medications and Allergies Home Medications Medication Instructions Recorded Confirmed Type Avonex 1 injection IM TU@1900 10/02/14 12/21/16 History Ferrous Sulfate [Feosol] 325 mg PO BID 10/02/14 12/21/16 History Insulin Glargine [Lantus] 15 units SQ QAM 10/02/14 12/21/16 History Lisinopril [Prinivil] 20 mg PO QAM 10/02/14 12/21/16 History lamoTRIgine [LaMICtal] 100 mg PO QAM 10/02/14 12/21/16 History metFORMIN HCL [Glucophage] 1,000 mg PO AC-BID 10/02/14 12/21/16 History sitaGLIPtin [Januvia] 100 mg PO DAILY 10/02/14 12/21/16 History amLODIPine [Norvasc] 5 mg PO HS 12/06/14 12/21/16 History Gabapentin [Neurontin] 400 mg PO TID 03/02/15 12/21/16 History Insulin Glargine [Lantus] 40 unit SQ HS 03/02/15 12/21/16 History Aspirin 81 mg PO DAILY 08/21/15 12/21/16 History Glimepiride [Amaryl] 2 mg PO QAM 10/29/15 12/21/16 History Amitriptyline HCl [Elavil] 25 mg PO HS 07/22/16 12/21/16 History Glimepiride [Amaryl] 4 mg PO AC-SUPPER 12/21/16 12/21/16 History Pravastatin Sodium [Pravachol] 40 mg PO HS 12/21/16 12/21/16 History lamoTRIgine [LaMICtal] 150 mg PO HS 12/21/16 12/21/16 History Allergies Allergy/AdvReac Type Severity Reaction Status Date / Time No Known Allergies Allergy Verified 12/21/16 09:24 Physical Examination - Vital Signs Vital Signs: Vital Signs Temp Pulse Pulse Resp BP BP Pulse Ox 12/21/16 11:54 98.9 F 89 19 144/71 95 12/21/16 08:17 97.2 F L 84 19 148/75 94 L 12/21/16 08:01 97 F L 85 20 157/70 97 12/21/16 06:53 88 18 163/75 97 12/21/16 05:42 97.4 F L 92 18 210/95 100 Intake and Output 12/20/16 12/21/16 12/21/16 22:59 06:59 14:59 Other: # Voids 1 Weight 99.79 kg 106.1 kg Patient Weight 12/22/16 06:59 Weight 106.1 kg PHYSICAL EXAM: GENERAL APPEARANCE: Patient is a well-developed, female who appears to be in no acute distress. HEENT: Normocephalic, atraumatic, no facial asymmetry is seen. Neck is supple with no masses felt. CARDIOVASCULAR: Regular rate and rhythm. ABDOMEN: Nontender, nondistended. EXTREMITIES: Show no edema or clubbing. NEUROLOGICAL EXAM: Patient is awake, alert, and oriented 3. Speech and language are normal. Strength is full in all 4 extremities. Chronic bilateral dropfoot is noted. Sensory exam to light touch is decreased in bilateral distal lower extremities. No facial asymmetry is seen on cranial nerve testing. No tremors or seizure-like activities noted. Results - Laboratory Findings CBC and BMP: 12/21/16 06:05 12/21/16 06:05 Abnormal Lab Findings: Abnormal Labs 12/21/16 12/21/16 12/21/16 06:05 06:05 06:10 WBC 11.0 H Hct 33.5 L BUN 29 H Creatinine 1.10 H Glucose 218 H POC Glucose (mg/dL) Alkaline Phosphatase 130 H Urine Protein 2+ H Urine Blood Trace H Ur Leukocyte Esterase Trace H 12/21/16 12:32 WBC Hct BUN Creatinine Glucose POC Glucose (mg/dL) 332 H Alkaline Phosphatase Urine Protein Urine Blood Ur Leukocyte Esterase Assessment and Plan Plan: Impression: 1. Possible exacerbation of MS 2. Nausea vomiting 3. Edema of the lower extremities 4. Chronic bilateral lower extremity neuropathy with hypersensitivity to touch 5. Type 2 diabetes 6. Hypertension Patient presented to the emergency room with complaints of nausea vomiting and increased hypersensitivity of chronic neuropathy of bilateral lower extremities. As mentioned above, lower extremity Dopplers were negative for DVT. As for nausea and vomiting, patient was started on Reglan. Patient denies any nausea since early this morning. On exam, patient's symptoms are not consistent with multiple sclerosis exacerbation. Patient is known to us in the office. I recommend continuing Avonex at current dose. Continue gabapentin for chronic neuropathy. I don't feel IV steroids would be beneficial at this point. Continue current medical management for abdominal symptoms. Patient has an appointment to see us in the office later this month. I will continue to follow with you on an as-needed basis. Feel free to call with any questions or concerns. Thank you for allowing me to participate in the care of your patient. Feel free to call with any questions or concerns. I performed an examination of the patient and discussed the management with the NEWSWRITER. I have reviewed the NEWSWRITER notes and agree with the findings and plan of care.
[2016-12-21 15:24] LABS: Glucose,Whole Blood 319 mg/dL (75-99)
[2016-12-21] MEDS: GABAPENTIN 400 MG CAP PO SCH ×2 (16:30→21:12)
[2016-12-21 17:27] LABS: Glucose,Whole Blood 287 mg/dL (75-99)
[2016-12-21] MEDS ORDERED: GLIMEPIRIDE 2 MG TAB PO SCH (17:30)
[2016-12-21 20:41] LABS: Glucose,Whole Blood 225 mg/dL (75-99)
[2016-12-21] MEDS ORDERED: INSULIN GLARGINE 100 UNIT/ML 10 ML VIAL SQ SCH (21:00)
[2016-12-21] MEDS ORDERED: PRAVASTATIN SODIUM 40 MG TAB PO SCH (21:00)
[2016-12-21] MEDS ORDERED: lamoTRIgine 100 MG TAB PO SCH (21:00)
[2016-12-21] MEDS ORDERED: AMITRIPTYLINE HCL 25 MG TAB PO SCH (21:00)
[2016-12-21] MEDS ORDERED: amLODIPine 5 MG TAB PO SCH (21:00)
[2016-12-21] MEDS: FERROUS SULFATE 325 MG TAB PO SCH (21:12)
[2016-12-22 02:59] LABS: Glucose,Whole Blood 220 mg/dL (75-99)
[2016-12-22] MEDS: SODIUM CHLORIDE 0.9% 1,000 ML IV ONE (03:58)
[2016-12-22 07:53] LABS: Glucose,Whole Blood 220 mg/dL (75-99)
[2016-12-22 07:55] VITALS: BP 152/71; PULSE 104; RESP 20; TEMP 98.3
[2016-12-22] MEDS: metFORMIN 500 MG TAB PO SCH (08:29)
[2016-12-22] MEDS: INSULIN LISPRO (humaLOG) 300 UNIT/3 ML VIAL SQ SCH ×3 (08:30→08:31)
[2016-12-22] MEDS: METOCLOPRAMIDE 10 MG TAB PO SCH (08:30)
[2016-12-22] MEDS: ENOXAPARIN 40 MG/0.4 ML SYRINGE SQ SCH (08:59)
[2016-12-22] MEDS: GABAPENTIN 400 MG CAP PO SCH (08:59)
[2016-12-22] MEDS ORDERED: LISINOPRIL 20 MG TAB PO SCH (09:00)
[2016-12-22] MEDS ORDERED: LINAGLIPTIN 5 MG TABLET PO SCH (09:00)
[2016-12-22] MEDS ORDERED: ASPIRIN 81 MG CHEW PO SCH (09:00)
[2016-12-22] MEDS ORDERED: lamoTRIgine 100 MG TAB PO SCH (09:00)
[2016-12-22] MEDS ORDERED: INSULIN GLARGINE 100 UNIT/ML 10 ML VIAL SQ SCH (09:00)
[2016-12-22] MEDS: FERROUS SULFATE 325 MG TAB PO SCH (09:00)
[2016-12-22] MEDS: LINAGLIPTIN 5 MG TABLET PO SCH (09:01)
[2016-12-22] MEDS: LISINOPRIL 20 MG TAB PO SCH (09:01)
[2016-12-22] MEDS: INSULIN GLARGINE 100 UNIT/ML 10 ML VIAL SQ SCH (09:04)
[2016-12-22 14:32] LABS: Hemoglobin A1C 8.6 % (4.2-6.1)
--- NOTE | 2016-12-22 15:56 | P.DS ---
Providers Date of admission: 12/21/16 07:09 Expected date of discharge: 12/22/16 Attending physician: Robb Ferrer Consults: 12/21/16 07:08 Consult Physician Routine Consulting Provider: Veronica Cleveland Consult Reason/Comments: ms Do you want consulting provider notified?: Yes Primary care physician: Aruna German Hospital Course: 46-year-old obese female [address] Lundberg's patient with past medical history of multiple sclerosis along with diabetes hypertension chronic neuropathy. Patient seen Dr. negron neurology on regular basis for MS was seen last 3 months ago. Patient has been on Avonex injection for MS and has been stable to the last few days. Patient developed to have for the last 2 weeks worsening abdominal discomfort along with nausea vomiting and mild diarrhea with significant swelling of the lower extremity achiness in the feet and her body overall. Patient was seen by her primary care physician and placed on H2 alex did not make much different continue having symptoms. Patient presented to the emergency department at [facility] with the above problem along with significant increased weakness of the lower extremity patient was diagnosed with exacerbation of her multiple sclerosis admitted to the hospital on high dose of steroid along with GI workup for her current intractable nausea and vomiting. 12/22: Patient was seen by neurology and exacerbation of MS has been ruled out. Patient will not require high-dose steroids. Patient has no new weakness. Patient will be discharged home today with new medication of Reglan, Humalog scale before meals and at bedtime and omeprazole. Patient will be discharged home today in stable condition. Discharge diagnoses: 1 intractable nausea and vomiting: Most likely gastroparesis with poorly controlled diabetes. Patient started on Reglan 2 significant edema and swelling of the lower extremity negative workup for DVT : Patient can benefit from being on diuretics rest knee-high PHILIPPE hose and stocking. 3 multiple sclerosis exacerbation ruled out 4 type 2 diabetes uncontrolled 5 hypertension 6 chronic neuropathy 7 chronic depression recurrent 8 hyperlipidemia 9 Acute kidney injury 10 [place]: More fatty liver and a patch of stasis most likely from her diabetes hyperlipidemia Discharge plan: Return home Impression and plan of care have been directed as dictated by the signing physician. Clary Haque nurse practitioner acting as scribe for signing physician. Cc: Dr. Boateng Patient Condition at Discharge: Good Plan - Discharge Summary New Discharge Prescriptions: New Insulin Lispro [humaLOG Kwikpen] 100 unit SQ ACHS #1 insuln.pen Metoclopramide [Reglan] 10 mg PO ACHS #120 tab Omeprazole 20 mg PO DAILY #30 tablet.dr Continue metFORMIN HCL [Glucophage] 1,000 mg PO AC-BID Ferrous Sulfate [Feosol] 325 mg PO BID Lisinopril [Prinivil] 20 mg PO QAM lamoTRIgine [LaMICtal] 100 mg PO QAM sitaGLIPtin [Januvia] 100 mg PO DAILY Insulin Glargine [Lantus] 15 units SQ QAM Avonex 1 injection IM TU@1900 amLODIPine [Norvasc] 5 mg PO HS Insulin Glargine [Lantus] 40 unit SQ HS Gabapentin [Neurontin] 400 mg PO TID Aspirin 81 mg PO DAILY Glimepiride [Amaryl] 2 mg PO QAM Amitriptyline HCl [Elavil] 25 mg PO HS Pravastatin Sodium [Pravachol] 40 mg PO HS Glimepiride [Amaryl] 4 mg PO AC-SUPPER lamoTRIgine [LaMICtal] 150 mg PO HS Discharge Medication List Avonex 1 injection IM TU@1900 10/02/14 [History] Ferrous Sulfate [Feosol] 325 mg PO BID 10/02/14 [History] Insulin Glargine [Lantus] 15 units SQ QAM 10/02/14 [History] Lisinopril [Prinivil] 20 mg PO QAM 10/02/14 [History] lamoTRIgine [LaMICtal] 100 mg PO QAM 10/02/14 [History] metFORMIN HCL [Glucophage] 1,000 mg PO AC-BID 10/02/14 [History] sitaGLIPtin [Januvia] 100 mg PO DAILY 10/02/14 [History] amLODIPine [Norvasc] 5 mg PO HS 12/06/14 [History] Gabapentin [Neurontin] 400 mg PO TID 03/02/15 [History] Insulin Glargine [Lantus] 40 unit SQ HS 03/02/15 [History] Aspirin 81 mg PO DAILY 08/21/15 [History] Glimepiride [Amaryl] 2 mg PO QAM 10/29/15 [History] Amitriptyline HCl [Elavil] 25 mg PO HS 07/22/16 [History] Glimepiride [Amaryl] 4 mg PO AC-SUPPER 12/21/16 [History] Pravastatin Sodium [Pravachol] 40 mg PO HS 12/21/16 [History] lamoTRIgine [LaMICtal] 150 mg PO HS 12/21/16 [History] Insulin Lispro [humaLOG Kwikpen] 100 unit SQ ACHS #1 insuln.pen 12/22/16 [Rx] Metoclopramide [Reglan] 10 mg PO ACHS #120 tab 12/22/16 [Rx] Omeprazole 20 mg PO DAILY #30 tablet. 12/22/16 [Rx] Follow up Appointment(s)/Referral(s): Aruna Boateng MD [Primary Care Provider] - 1 Week (Patient to call ) Veronica Cleveland MD [STAFF PHYSICIAN] - 1 Week Activity/Diet/Wound Care/Special Instructions: Insulin scale for high BS until seen by PCP. Discharge Disposition: HOME SELF-CARE
[2016-12-23] MEDS ORDERED: AVONEX IM SCH (19:00)
== END 2016-12-22 11:14 | disposition home or self-care (01) | DRG 74 ==
LOC: EC 05:40 → 6PED 07:09
PROVIDERS: ADMIT Internal Medicine Geriatric Medicine; ATTEND Internal Medicine Geriatric Medicine
DX: E11.43 Type 2 diabetes mellitus with diabetic autonomic (poly)neuropathy (principal); N17.9 Acute kidney failure, unspecified; E11.69 Type 2 diabetes mellitus with other specified complication; E11.65 Type 2 diabetes mellitus with hyperglycemia; F33.9 Major depressive disorder, recurrent, unspecified; K31.84 Gastroparesis; G35 Multiple sclerosis; K75.81 Nonalcoholic steatohepatitis (NASH); E78.5 Hyperlipidemia, unspecified; E66.9 Obesity, unspecified; E11.42 Type 2 diabetes mellitus with diabetic polyneuropathy; F41.9 Anxiety disorder, unspecified; I10 Essential (primary) hypertension; R19.7 Diarrhea, unspecified; M21.372 Foot drop, left foot; M21.371 Foot drop, right foot; R60.0 Localized edema; K76.1 Chronic passive congestion of liver; R53.1 Weakness; Z79.899 Other long term (current) drug therapy; Z82.49 Family history of ischemic heart disease and other diseases of the circulatory system; Z98.51 Tubal ligation status; Z79.82 Long term (current) use of aspirin; Z79.4 Long term (current) use of insulin; Z87.891 Personal history of nicotine dependence
CPT/HCPCS: 36415; 74000; 76705; 80053; 81001; 81025; 82150; 82550; 82553; 83036; 83605; 83690; 84484; 85025; 87086; 93970; 96361; 96374; 96375; 99285

== ENCOUNTER → 2017-03-13 | Outpatient (CLI) | payer OTHER ==
--- NOTE | 2017-03-13 12:51 | MR ---
EXAMINATION TYPE: MR lumbar spine wo con DATE OF EXAM: 03/13/2017 COMPARISON: 02/03/2015 HISTORY: lumbago TECHNIQUE: Multiplanar, multisequence images of the lumbar spine were acquired. L1-L2: Normal disc appearance without desiccation. No herniation, protrusion or disc bulging. No ca nal stenosis is present. Foramina are patent bilaterally. L2-L3: Small broad-based disc bulge increased mild bilateral neural foraminal narrowing. No spinal ca nal stenosis. No significant facet arthropathy. L3-L4: Broad-based disc bulge in combination with facet arthropathy and ligamentum flavum buckling cr eate moderate bilateral neural foraminal narrowing. No annular tear or focality to suggest herniation . L4-L5: Right eccentric disc bulge creates moderate right and mild left neural foraminal stenosis in c ombination with facet arthropathy and ligamentum flavum buckling. No spinal canal stenosis. L5-S1: Small broad-based disc bulge, right eccentric creates mild bilateral neural foraminal narrowin g. No spinal canal stenosis or focality to suggest herniation. Mild facet arthropathy is present. Lumbar vertebral bodies maintain normal height and alignment. Normal bone marrow signal is seen throu ghout. No paraspinal masses are identified. Conus medullaris has a normal appearance. IMPRESSION: No focal disc herniation. Mildly progressed degenerative disc disease in comparison to the prior exam from L3 through S1 resulting in moderate right neural foraminal narrowing at L4-5. No spinal canal s tenosis.
== END | disposition home or self-care (01) ==
LOC: RADMRIMAIN 11:51
PROVIDERS: ATTEND Nurse Practitioner Acute Care
DX: M99.73 Connective tissue and disc stenosis of intervertebral foramina of lumbar region (principal); M51.37 Other intervertebral disc degeneration, lumbosacral region
CPT/HCPCS: 72148

== ENCOUNTER 2017-06-29 12:20 | Emergency (ER) | payer OTHER ==
[2017-06-29] MEDS ORDERED: KETOROLAC 60 MG/2 ML VIAL IM STA (13:21)
--- NOTE | 2017-06-29 13:33 | ED ---
General Adult HPI - General Chief complaint: Back Pain/Injury Stated complaint: Lower Back Pain Time Seen by Provider: 06/29/17 13:15 Source: patient, RN notes reviewed Mode of arrival: ambulatory Limitations: no limitations - History of Present Illness Initial comments: Patient is a 46-year-old female who presents emergency room today with a chief complaint of right-sided lower back pain. Patient does admit to history of chronic low back pain but she states this does feel little different. Denies any injury or trauma. She does state that is worse with movements. States worse with rotation and bending or twisting. Patient denies any bowel or bladder incontinence retention. Denies any saddle anesthesia. Denies any other complaint associated symptoms currently. Patient denies any recent fever, chills, shortness of breath, chest pain, back pain, abdominal pain, nausea or vomiting, numbness or tingling, dysuria or hematuria, constipation or diarrhea, headaches or visual changes, or any other complaints. - Related Data Home Medications Medication Instructions Recorded Confirmed Avonex 1 injection IM TU@1900 10/02/14 06/29/17 Ferrous Sulfate [Feosol] 325 mg PO BID 10/02/14 06/29/17 Insulin Glargine [Lantus] 40 units SQ QAM 10/02/14 06/29/17 Lisinopril [Prinivil] 20 mg PO QAM 10/02/14 06/29/17 lamoTRIgine [LaMICtal] 100 mg PO QAM 10/02/14 06/29/17 metFORMIN HCL [Glucophage] 1,000 mg PO AC-BID 10/02/14 06/29/17 sitaGLIPtin [Januvia] 100 mg PO DAILY 10/02/14 06/29/17 amLODIPine [Norvasc] 5 mg PO HS 12/06/14 06/29/17 Gabapentin [Neurontin] 400 mg PO TID 03/02/15 06/29/17 Insulin Glargine [Lantus] 35 unit SQ HS 03/02/15 06/29/17 Aspirin 81 mg PO DAILY 08/21/15 06/29/17 Glimepiride [Amaryl] 2 mg PO QAM 10/29/15 06/29/17 Amitriptyline HCl [Elavil] 25 mg PO HS 07/22/16 06/29/17 Glimepiride [Amaryl] 4 mg PO AC-SUPPER 12/21/16 06/29/17 Pravastatin Sodium [Pravachol] 40 mg PO HS 12/21/16 06/29/17 lamoTRIgine [LaMICtal] 150 mg PO HS 12/21/16 06/29/17 Previous Rx's Medication Instructions Recorded Omeprazole 20 mg PO DAILY #30 tablet. 12/22/16 Cyclobenzaprine [Flexeril] 10 mg PO TID #20 tab 06/29/17 Lidocaine [Lidoderm 5% Patch] 1 patch TRANSDERM DAILY #7 patch 06/29/17 Allergies Allergy/AdvReac Type Severity Reaction Status Date / Time No Known Allergies Allergy Verified 06/29/17 13:57 Review of Systems ROS Statement: Those systems with pertinent positive or pertinent negative responses have been documented in the HPI. ROS Other: All systems not noted in ROS Statement are negative. Past Medical History Past Medical History: Diabetes Mellitus, Hyperlipidemia, Hypertension Additional Past Medical History / Comment(s): MS, anemia, History of Any Multi-Drug Resistant Organisms: None Reported Past Surgical History: Tubal Ligation, Uterine Ablation Additional Past Surgical History / Comment(s): TEETH REMOVAL Past Psychological History: Anxiety, Bipolar, Depression Smoking Status: Former smoker Past Alcohol Use History: None Reported Past Drug Use History: None Reported - Past Family History Mother History Unknown: Yes Family Medical History: Congestive Heart Failure (CHF) Father History Unknown: Yes Family Medical History: Coronary Artery Disease (CAD), Myocardial Infarction ([place] ) General Exam - General Exam Comments Initial Comments: General: The patient is awake and alert, in no distress, and does not appear acutely ill. Eye: Pupils are equal, round and reactive to light, extra-ocular movements are intact. No nystagmus. There is normal conjunctiva bilaterally. No signs of icterus. Ears, nose, mouth and throat: There are moist mucous membranes and no oral lesions. Neck: The neck is supple, there is no tenderness or JVD. Cardiovascular: There is a regular rate and rhythm. No murmur, rub or gallop is appreciated. Respiratory: Lungs are clear to auscultation, respirations are non-labored, breath sounds are equal. No wheezes, stridor, rales, or rhonchi. Musculoskeletal: Normal ROM. Normal appearance of the thoracic and lumbar spine with no step-offs deformities. No tenderness midline. Patient does have tenderness paravertebrally to the lumbar spine at approximately L2. Strength 5/ 5. Sensation intact. Pulses equal bilaterally 2+. Neurological: A&O x 3. CN II-XII intact, There are no obvious motor or sensory deficits. Coordination appears grossly intact. Speech is normal. Skin: Skin is warm and dry and no rashes or lesions are noted. Psychiatric: Cooperative, appropriate mood & affect, normal judgment. Limitations: no limitations Course Vital Signs 06/29/17 12:41 Temperature 98.3 F Pulse Rate 86 Respiratory 20 Rate Blood Pressure 185/73 O2 Sat by Pulse 100 Oximetry Medical Decision Making - Medical Decision Making Patient reexamined at this time shows no signs of distress. Patient given Lidoderm patch in the emergency room along with Toradol for her symptoms. Patient pain reproducible with certain movements of bending, twisting. Patient will be treated with muscle relaxer as well by cerumen make her drowsy. Advised follow-up family doctor further evaluation over the next 2 days for symptoms persist. Advised return here to the emergency room for any symptoms increase worsen or for any other concerns. Patient states understanding and is in agreement. - Lab Data Lab Results 06/29/17 Range/Units 13:30 Urine Color Light Yellow Urine Appearance Cloudy H (Clear) Urine pH 7.0 (5.0-8.0) Ur Specific [place] 1.012 (1.001-1.035) Urine Protein 2+ H (Negative) Urine Glucose (UA) Negative (Negative) Urine Ketones Negative (Negative) Urine Blood Trace H (Negative) Urine Nitrite Negative (Negative) Urine Bilirubin Negative (Negative) Urine Urobilinogen <2.0 (<2.0) mg/dL Ur Leukocyte Esterase Negative (Negative) Urine RBC 2 (0-5) /hpf Urine WBC 1 (0-5) /hpf Ur Squamous Epith Cells 2 (0-4) /hpf Urine Bacteria Rare H (None) /hpf Urine Mucus Rare H (None) /hpf Disposition Clinical Impression: Acute low back pain Disposition: HOME SELF-CARE Condition: Good Instructions: Acute Low Back Pain (ED) Additional Instructions: Please use medication as discussed. Please follow-up with family doctor in the next 2 days of symptoms have not improved. Please return to emergency room if the symptoms increase or worsen or for any other concerns. Prescriptions: Cyclobenzaprine [Flexeril] 10 mg PO TID #20 tab Lidocaine [Lidoderm 5% Patch] 1 patch TRANSDERM DAILY #7 patch Referrals: Aruna Boateng MD [Primary Care Provider] - 1-2 days Time of Disposition: 14:23
[2017-06-29 13:47] LABS: Appearance,Urine Cloudy (Clear); Bacteria,Urine Rare /hpf; Bilirubin,Urine Negative (Negative); Blood,Urine Trace (Negative); Color,Urine Light Yellow; Glucose,Urine (UA) Negative (Negative); Ketones,Urine Negative (Negative); Leukocyte Esterase,Urine Negative (Negative); Mucus,Urine Rare /hpf; Nitrite,Urine Negative (Negative); Protein,Urine 2+ (Negative); RBC,Urine 2 /hpf (0-5); Specific Gravity,Urine 1.012 (1.001-1.035); Squamous Epithelial Cell,Urine 2 /hpf (0-4); Urobilinogen,Urine <2.0 mg/dL (<2.0); WBC,Urine 1 /hpf (0-5)
--- NOTE | 2017-06-29 14:16 | XR ---
EXAMINATION TYPE: XR lumbar spine 2 or 3V DATE OF EXAM: 06/29/2017 COMPARISON: NONE HISTORY: 46-year-old female with pain TECHNIQUE: 3 views FINDINGS: 5 lumbar type vertebral bodies. Mild multilevel degenerative disc interspace narrowing throughout. Fa cet arthropathy mid to lower lumbar spine. Vertebral body heights are preserved and alignment is main tained. IMPRESSION: Mild multilevel degenerative disc disease. Additional facet arthropathy mid to lower lumbar spine. No vertebral compression collapse or malalignment.
[2017-06-29] MEDS ORDERED: LIDOCAINE 5% PATCH TOPICAL STA (14:22)
[2017-06-29 15:00] VITALS: BP 173/93; PULSE 70; RESP 16; TEMP 97.9
== END 2017-06-29 15:00 | disposition home or self-care (01) ==
LOC: EC 12:20
DX: M54.5 Low back pain (principal); G89.29 Other chronic pain; E78.5 Hyperlipidemia, unspecified; I10 Essential (primary) hypertension; E11.9 Type 2 diabetes mellitus without complications; D64.9 Anemia, unspecified; G35 Multiple sclerosis; F31.9 Bipolar disorder, unspecified; F41.9 Anxiety disorder, unspecified; Z87.891 Personal history of nicotine dependence; Z79.4 Long term (current) use of insulin; Z79.82 Long term (current) use of aspirin; Z79.899 Other long term (current) drug therapy
CPT/HCPCS: 81001; 87086; 72100; 99284; 96372; J1885

== ENCOUNTER 2017-09-27 13:30 | Emergency (ER) | payer OTHER ==
[2017-09-27 13:51] VITALS: BP 157/70; PULSE 86; RESP 20; TEMP 98.3
--- NOTE | 2017-09-27 13:59 | ED ---
Fall HPI - General Chief Complaint: Fall Stated Complaint: fall Time Seen by Provider: 09/27/17 13:52 Source: patient, RN notes reviewed, old records reviewed Mode of arrival: ambulatory - History of Present Illness Initial Comments: Ruby Craft is a 47-year-old female presents emergency department today chief complaint of right perez pain. She reports that she fell on Thursday, 5 days ago. She reports that she hit the top of her perez. She has not been icing it or taking anti-inflammatory medicine. She denies any foot or ankle pain. She reports that throughout the day the swelling becomes worse. It goes down at night. She denies any left extremity swelling or pain. She denies any numbness or tingling, toes. She denies any foot pain. Patient denies any recent fever, chills, shortness of breath, chest pain, back pain, abdominal pain, nausea vomiting, numbness or tingling, dysuria or hematuria, constipation or diarrhea, headaches or visual changes, or any other current symptoms - Related Data Home Medications Medication Instructions Recorded Confirmed Avonex 1 injection IM TU@1900 10/02/14 06/29/17 Ferrous Sulfate [Feosol] 325 mg PO BID 10/02/14 06/29/17 Insulin Glargine [Lantus] 40 units SQ QAM 10/02/14 06/29/17 Lisinopril [Prinivil] 20 mg PO QAM 10/02/14 06/29/17 lamoTRIgine [LaMICtal] 100 mg PO QAM 10/02/14 06/29/17 metFORMIN HCL [Glucophage] 1,000 mg PO AC-BID 10/02/14 06/29/17 sitaGLIPtin [Januvia] 100 mg PO DAILY 10/02/14 06/29/17 amLODIPine [Norvasc] 5 mg PO 12/06/14 06/29/17 Gabapentin [Neurontin] 400 mg PO TID 03/02/15 06/29/17 Insulin Glargine [Lantus] 35 unit SQ 03/02/15 06/29/17 Aspirin 81 mg PO DAILY 08/21/15 06/29/17 Glimepiride [Amaryl] 2 mg PO QAM 10/29/15 06/29/17 Amitriptyline HCl [Elavil] 25 mg PO 07/22/16 06/29/17 Glimepiride [Amaryl] 4 mg PO AC-SUPPER 12/21/16 06/29/17 Pravastatin Sodium [Pravachol] 40 mg PO HS 12/21/16 06/29/17 lamoTRIgine [LaMICtal] 150 mg PO HS 12/21/16 06/29/17 Previous Rx's Medication Instructions Recorded Omeprazole 20 mg PO DAILY #30 tablet. 12/22/16 Cyclobenzaprine [Flexeril] 10 mg PO TID #20 tab 06/29/17 Lidocaine [Lidoderm 5% Patch] 1 patch TRANSDERM DAILY #7 patch 06/29/17 Ibuprofen [Motrin] 600 mg PO Q8HR PRN #20 tab 09/27/17 Allergies Allergy/AdvReac Type Severity Reaction Status Date / Time No Known Allergies Allergy Verified 09/27/17 13:51 Review of Systems ROS Statement: Those systems with pertinent positive or pertinent negative responses have been documented in the HPI. ROS Other: All systems not noted in ROS Statement are negative. Past Medical History Past Medical History: Diabetes Mellitus, Hyperlipidemia, Hypertension Additional Past Medical History / Comment(s): MS, anemia, History of Any Multi-Drug Resistant Organisms: None Reported Past Surgical History: Tubal Ligation, Uterine Ablation Additional Past Surgical History / Comment(s): TEETH REMOVAL Past Psychological History: Anxiety, Bipolar, Depression Smoking Status: Former smoker Past Alcohol Use History: None Reported Past Drug Use History: None Reported - Past Family History Mother History Unknown: Yes Family Medical History: Congestive Heart Failure (CHF) Father History Unknown: Yes Family Medical History: Coronary Artery Disease (CAD), Myocardial Infarction ([place] ) General Exam - General Exam Comments Initial Comments: 47-year-old female. No distress. Limitations: no limitations General appearance: alert, in no apparent distress Head exam: Present: atraumatic, normocephalic, normal inspection Eye exam: Present: normal appearance, PERRL, EOMI. Absent: scleral icterus, conjunctival injection, periorbital swelling ENT exam: Present: normal exam, mucous membranes moist Neck exam: Present: normal inspection. Absent: tenderness, meningismus, lymphadenopathy Respiratory exam: Present: normal lung sounds bilaterally. Absent: respiratory distress, wheezes, rales, rhonchi, stridor Cardiovascular Exam: Present: regular rate, normal rhythm, normal heart sounds. Absent: systolic murmur, diastolic murmur, rubs, gallop, clicks GI/Abdominal exam: Present: soft, normal bowel sounds. Absent: distended, tenderness, guarding, rebound, rigid Extremities exam: Present: normal inspection, full ROM, normal capillary refill. Absent: tenderness, pedal edema, joint swelling, calf tenderness Right Knee exam: Present: normal inspection, full ROM Lower Leg exam: Present: normal inspection, full ROM, tenderness (Patient reports tender over the lower anterior aspect of the perez. No bruising noted. No significant swelling noted.) Ankle exam: Present: normal inspection, full ROM Foot/Toe exam: Present: normal inspection, full ROM Neurovascular tendon exam: Present: no vascular compromise Gait: observed and normal Back exam: Present: normal inspection Neurological exam: Present: alert, oriented X3, CN II-XII intact Psychiatric exam: Present: normal affect, normal mood Skin exam: Present: warm, dry, intact, normal color. Absent: rash Course Vital Signs 09/27/17 13:49 Temperature 98.3 F Pulse Rate 86 Respiratory 20 Rate Blood Pressure 157/70 O2 Sat by Pulse 98 Oximetry Medical Decision Making - Medical Decision Making 47-year-old female presents emergency room and left lower extremity injury on Thursday. She reports that she has pain over the anterior perez. She reports that over the day it started to swell and become worse. Patient's x-ray reviewed thoroughly is a small chip noted lateral malleolus due to a remote injury. There is no acute abnormality is noted. Patient has no tenderness over the lateral malleolus. She does report that she sprained her ankle many years ago. She had a previous fracture. Again patient has no tenderness over the lateral malleolus at the site of the small chip. At this time she has no significant swelling or bruising noted. I discussed likely the deep contusion. Discussed that she's normal pulses and normal sensation. She can follow-up with orthopedic. All questions answered and return parameters were discussed. - Radiology Data Radiology results: report reviewed X-ray shows some soft tissue swelling. Some bony deformity at the tip of the lateral malleolus and a sequela terminal injury. No acute osseous normality. Disposition Clinical Impression: Contusion of leg, right Disposition: HOME SELF-CARE Condition: Good Instructions: Contusion in Adults (ED) Additional Instructions: Patient rest, ice, elevate the leg. Return to the emergency department if any alarming signs or symptoms occur. Follow-up with primary care provider and ortho if symptoms persist. Keep the leg elevated as much as possible. Prescriptions: Ibuprofen [Motrin] 600 mg PO Q8HR PRN #20 tab PRN Reason: Pain Referrals: Aruna Boateng MD [Primary Care Provider] - 1-2 days Isaak Langston MD [STAFF PHYSICIAN] - 1-2 days Time of Disposition: 14:43
--- NOTE | 2017-09-27 14:26 | XR ---
EXAMINATION TYPE: XR tibia fibula RT DATE OF EXAM: 09/27/2017 COMPARISON: NONE HISTORY: 47-year-old female with pain TECHNIQUE: 2 views FINDINGS: There is mild soft tissue swelling. Bony spurring below the lateral malleolus. Tiny round calcific de nsity medial soft tissues of the middle third leg likely phlebolith. Soft tissue swelling extends to the ankle. No acute fracture or dislocation seen. IMPRESSION: Soft tissue swelling. Some bony deformity at the tip of the lateral malleolus suggests sequela of rem ote injury. No acute osseous abnormality seen.
== END 2017-09-27 15:00 | disposition home or self-care (01) ==
LOC: EC 13:30
DX: S80.11XA Contusion of right lower leg, initial encounter (principal); E11.9 Type 2 diabetes mellitus without complications; E78.5 Hyperlipidemia, unspecified; I10 Essential (primary) hypertension; D64.9 Anemia, unspecified; F41.9 Anxiety disorder, unspecified; F32.9 Major depressive disorder, single episode, unspecified; Z87.891 Personal history of nicotine dependence; Z79.4 Long term (current) use of insulin; Z79.82 Long term (current) use of aspirin; Z79.899 Other long term (current) drug therapy; W01.0XXA Fall on same level from slipping, tripping and stumbling without subsequent striking against object, initial encounter; Y92.009 Unspecified place in unspecified non-institutional (private) residence as the place of occurrence of the external cause
CPT/HCPCS: 99284

== ENCOUNTER 2017-12-27 14:08 | Emergency (ER) | payer OTHER ==
[2017-12-27 15:10] VITALS: BP 123/73; PULSE 96; RESP 18; TEMP 98.2
--- NOTE | 2017-12-27 15:51 | XR ---
Left foot and left ankle HISTORY: Pain and swelling, trauma 3 views of the left ankle and 3 views of the left foot submitted. There is soft tissue swelling noted at the left ankle. Small ossific density present at the proximal aspect of the fifth metatarsal could represent dancer's fracture. Bone mineralization, joint spaces a nd alignment are maintained within ankle. There is a plantar calcaneal spur present. Hallux valgus de formity noted. IMPRESSION: Proximal fifth metatarsal fracture is suspected. Correlate for point tenderness.
--- NOTE | 2017-12-27 16:06 | ED ---
General Adult HPI - General Chief complaint: Extremity Injury, Lower Stated complaint: fall/ankle pain Time Seen by Provider: 12/27/17 15:51 Source: patient, RN notes reviewed Mode of arrival: ambulatory Limitations: physical limitation - History of Present Illness Initial comments: Patient 47-year-old female presenting to the emergency room today with a chief complaint of a injury to the left foot. She states that she misstepped she heard a pop. Patient does admit to pain over the fifth metatarsal. She denies any other points associated symptoms. Patient denies any recent fever, chills, shortness of breath, chest pain, back pain, abdominal pain, nausea or vomiting, headaches or visual changes, or any other complaints. - Related Data Home Medications Medication Instructions Recorded Confirmed Avonex 1 injection IM TU@1900 10/02/14 06/29/17 Ferrous Sulfate [Feosol] 325 mg PO BID 10/02/14 06/29/17 Insulin Glargine [Lantus] 40 units SQ QAM 10/02/14 06/29/17 Lisinopril [Prinivil] 20 mg PO QAM 10/02/14 06/29/17 lamoTRIgine [LaMICtal] 100 mg PO QAM 10/02/14 06/29/17 metFORMIN HCL [Glucophage] 1,000 mg PO AC-BID 10/02/14 06/29/17 sitaGLIPtin [Januvia] 100 mg PO DAILY 10/02/14 06/29/17 amLODIPine [Norvasc] 5 mg PO HS 12/06/14 06/29/17 Gabapentin [Neurontin] 400 mg PO TID 03/02/15 06/29/17 Insulin Glargine [Lantus] 35 unit SQ HS 03/02/15 06/29/17 Aspirin 81 mg PO DAILY 08/21/15 06/29/17 Glimepiride [Amaryl] 2 mg PO QAM 10/29/15 06/29/17 Amitriptyline HCl [Elavil] 25 mg PO HS 07/22/16 06/29/17 Glimepiride [Amaryl] 4 mg PO AC-SUPPER 12/21/16 06/29/17 Pravastatin Sodium [Pravachol] 40 mg PO HS 12/21/16 06/29/17 lamoTRIgine [LaMICtal] 150 mg PO HS 12/21/16 06/29/17 Previous Rx's Medication Instructions Recorded Omeprazole 20 mg PO DAILY #30 tablet. 12/22/16 Cyclobenzaprine [Flexeril] 10 mg PO TID #20 tab 06/29/17 Lidocaine [Lidoderm 5% Patch] 1 patch TRANSDERM DAILY #7 patch 06/29/17 Ibuprofen [Motrin] 600 mg PO Q8HR PRN #20 tab 09/27/17 Allergies Allergy/AdvReac Type Severity Reaction Status Date / Time No Known Allergies Allergy Verified 12/27/17 15:10 Review of Systems ROS Statement: Those systems with pertinent positive or pertinent negative responses have been documented in the HPI. ROS Other: All systems not noted in ROS Statement are negative. Past Medical History Past Medical History: Diabetes Mellitus, Hyperlipidemia, Hypertension Additional Past Medical History / Comment(s): MS, anemia, History of Any Multi-Drug Resistant Organisms: None Reported Past Surgical History: Tubal Ligation, Uterine Ablation Additional Past Surgical History / Comment(s): TEETH REMOVAL Past Psychological History: Anxiety, Bipolar, Depression Smoking Status: Current every day smoker Past Alcohol Use History: None Reported Past Drug Use History: None Reported - Past Family History Mother History Unknown: Yes Family Medical History: Congestive Heart Failure (CHF) Father History Unknown: Yes Family Medical History: Coronary Artery Disease (CAD), Myocardial Infarction ([place] ) General Exam - General Exam Comments Initial Comments: General: The patient is awake and alert, in no distress, and does not appear acutely ill. Neck: The neck is supple, there is no tenderness or JVD. Musculoskeletal: Normal appearance of the foot and ankle no obvious deformity. Tender to palpation over the proximal fifth metatarsal. Pedal pulse 2+. Shows good range of motion. Sensation intact. Neurological: A&O x 3. CN II-XII intact, There are no obvious motor or sensory deficits. Coordination appears grossly intact. Speech is normal. Skin: Skin is warm and dry and no rashes or lesions are noted. Psychiatric: Normal mood and affect. Limitations: physical limitation Course Vital Signs 12/27/17 15:08 Temperature 98.2 F Pulse Rate 96 Respiratory 18 Rate Blood Pressure 123/73 O2 Sat by Pulse 97 Oximetry Medical Decision Making - Medical Decision Making X-rays reviewed and are positive for a fracture of the fifth metatarsal with minimal displacement. Patient has been splinted in a short leg posterior OCL splint. Patient states she has crutches at home. She is advised nonweightbearing. Advised follow-up with orthopedics over the next 2 days. Disposition Clinical Impression: Foot fracture Disposition: HOME SELF-CARE Condition: Good Instructions: Foot Fracture in Adults (ED) Additional Instructions: Please leave splint placed over follow-up appointment with orthopedics over the next 2 days. Please continue to ice elevate the affected area until follow-up with orthopedics. Please return to emergency room for any other concerns. Is patient prescribed a controlled substance at d/c from ED?: No Referrals: Aruna Boateng MD [Primary Care Provider] - 1-2 days Johanna Parks PAC [PHYSICIAN TECHNICAL ARCHITECT] - 1-2 days Time of Disposition: 16:04
== END 2017-12-27 16:28 | disposition home or self-care (01) ==
LOC: EC 14:08
DX: S92.352A Displaced fracture of fifth metatarsal bone, left foot, initial encounter for closed fracture (principal); F31.9 Bipolar disorder, unspecified; F41.9 Anxiety disorder, unspecified; E11.9 Type 2 diabetes mellitus without complications; I10 Essential (primary) hypertension; G35 Multiple sclerosis; F17.200 Nicotine dependence, unspecified, uncomplicated; Z79.4 Long term (current) use of insulin; Z79.82 Long term (current) use of aspirin; Z79.899 Other long term (current) drug therapy; W10.9XXA Fall (on) (from) unspecified stairs and steps, initial encounter
CPT/HCPCS: 29515; 99283

== ENCOUNTER → 2017-12-29 | Outpatient (CLI) | payer OTHER ==
--- NOTE | 2017-12-29 23:58 | MR ---
EXAMINATION TYPE: MR brain wo/w cspine wo DATE OF EXAM: 12/29/2017 COMPARISON: Prior MRI brain August 07, 2016. Prior MRI cervical spine September 05, 2014. HISTORY: MS, Nicho arm pain, weakness, neck stiffness TECHNIQUE: Multiplanar, multisequence images of the brain and brainstem is performed without and with IV contras t, utilizing 10 mL intravenous Gadavist gadolinium contrast is administered intravenously. Multiplana r, multisequence imaging of cervical spine is performed without contrast. Demyelinating disease trisha col with additional Sagittal Flair sequence performed of the brain and brainstem and PD sagittal sequ ences of the cervical spine all are acquired. FINDINGS: BRAIN: T2 Lesions Present : Yes Approximate Number of Lesions: Difficult to accurately count due to confluent appearance at the periv entricular level Locations Identified : Know infratentorial involvement is noted Size of Reference Lesion(s): 1. 1.0 cm x 0.9 cm x 2.1 cm on axial image 19 and sagittal image 11 left parietal occipital perivent ricular lesion felt stable 2 0.9 cm x 0.7 cm x 0.9 cm on axial image 24 and sagittal image 22 posterior deep right frontal les ion. Stable Enhancing Lesion(s) Present: No T1 Hypointense Lesion(s) Present: Yes Change from Prior: Stable Diffusion weighted images demonstrate no evidence of a recent infarct or other diffusion abnormality. There is no worrisome extra-axial fluid collection. The ventricular system and cisternal spaces ar e normal in size and appearance. The brain volume is age appropriate. Midline structures demonstrate normal morphology. The craniocervical junction appears within normal limits. Post contrast images demonstrate no abnormal enhancement. The dural venous sinuses appear pa tent. Mild mucosal thickening ethmoid sinuses improved from prior. Remainder paranasal sinuses are cl ear. Globes are intact bilaterally. IMPRESSION: Moderate white matter changes likely on basis of patient's known multiple sclerosis redem onstrated. Findings are stable. No new or enhancing lesions identified. Improved paranasal sinus dise ase noted. C-SPINE: Evaluation slightly suboptimal as there is motion artifact degradation identified. FINDINGS: Sagittal images of the cervical spine show the craniocervical junction to remain within nor mal limits. The cervical and upper thoracic spinal cord is normal in course, caliber, and signal. V ertebral alignment is anatomic. The vertebral body and intravertebral disk heights are normal. Stab le small posterior disc herniation C4-C5 through C6-C7 levels on sagittal images. The bone marrow sig nal intensity is within normal limits. No abnormal postcontrast enhancement is seen. Axial images show the C2-C3 and C3-C4 levels to remain within normal limits. Axial images at C4-C5 level shows central disc protrusion effacing anterior thecal sac with mild face t arthropathy bilaterally causing mild bilateral neural foraminal narrowing. No significant change fr om prior. Axial images at C5-C6 level shows central disc protrusion effacing anterior thecal sac, bilateral colten ral foramina are patent. No significant change from prior. Axial images at C6-C7 level shows broad-based right paracentral disc protrusion effacing the anterior thecal sac stable or slightly more prominent from prior. Bilateral neural foramina are patent. Axial images at C7-T1 level remain within normal limits.. IMPRESSION: Suboptimal study without convincing evidence of demyelinating disease involvement in the cervical spinal cord. Multilevel degenerative changes C4-C5 through C6-C7 levels redemonstrated with perhaps slight progression at C6-C7 level noted.
== END | disposition home or self-care (01) ==
LOC: RADMRIMAIN 15:35
PROVIDERS: ATTEND Psychiatry & Neurology Neurology
DX: M47.812 Spondylosis without myelopathy or radiculopathy, cervical region (principal); R90.82 White matter disease, unspecified; G35 Multiple sclerosis
CPT/HCPCS: 82565; 70553; 72141; A9581

== ENCOUNTER 2018-06-08 16:47 | Emergency (ER) | payer OTHER ==
[2018-06-08 17:04] LABS: Glucose,Whole Blood 142 mg/dL (75-99)
[2018-06-08] MEDS ORDERED: SODIUM CHLORIDE 0.9% 1,000 ML IV STA (18:22)
[2018-06-08 19:06] LABS: Appearance,Urine Clear (Clear); Bacteria,Urine Rare /hpf; Basophils # (A) 0.1 k/uL (0-0.2); Basophils % (A) 0 %; Bilirubin,Urine Negative (Negative); Blood,Urine Small (Negative); Color,Urine Light Yellow; Eosinophils # (A) 0.2 k/uL (0-0.7); Eosinophils % (A) 1 %; Glucose,Urine (UA) Negative (Negative); HCT 29.3 % (34.0-46.0); HGB 9.4 gm/dL (11.4-16.0); Ketones,Urine Negative (Negative); Leukocyte Esterase,Urine Trace (Negative); Lymphocytes # (A) 0.9 k/uL (1.0-4.8); Lymphocytes % (A) 6 %; MCH 28.4 pg (25.0-35.0); MCV 88.7 fL (80.0-100.0); Mean Platelet Volume 6.4; Monocytes # (A) 0.6 k/uL (0-1.0); Monocytes % (A) 4 %; Mucus,Urine Rare /hpf; Neutrophils % (A) 89 %; Nitrite,Urine Negative (Negative); PH, Urine 5.5 (5.0-8.0); Platelet Count 263 k/uL (150-450); Protein,Urine 2+ (Negative); RBC 3.31 m/uL (3.80-5.40); RBC,Urine 9 /hpf (0-5); RDW 15.2 % (11.5-15.5); Specific Gravity,Urine 1.013 (1.001-1.035); Squamous Epithelial Cell,Urine <1 /hpf (0-4); Urobilinogen,Urine <2.0 mg/dL (<2.0); WBC 15.8 k/uL (3.8-10.6); WBC,Urine 11 /hpf (0-5)
[2018-06-08 19:15] LABS: Albumin 3.2 g/dL (3.5-5.0); Calcium 8.5 mg/dL (8.4-10.2); Magnesium 1.4 mg/dL (1.6-2.3); Total Bilirubin 0.1 mg/dL (0.2-1.3); Total Protein 5.5 g/dL (6.3-8.2)
--- NOTE | 2018-06-08 19:18 | XR ---
EXAMINATION TYPE: XR chest 2V DATE OF EXAM: 06/08/2018 COMPARISON: 03/24/2016 HISTORY: Chest pain TECHNIQUE: Frontal and lateral views of the chest are obtained. FINDINGS: Heart and mediastinum are normal. Lungs are clear. Diaphragm is normal. The bony thorax is intact. Pulmonary vascularity is normal. IMPRESSION: Normal chest. No change.
--- NOTE | 2018-06-08 19:24 | ED ---
General Adult HPI - General Source: patient Mode of arrival: ambulatory Limitations: no limitations <Yina Persaud - Last Filed: 06/08/18 18:23> <Parmjit Gregory - Last Filed: 06/08/18 23:15> - General Chief complaint: Recheck/Abnormal Lab/Rx Stated complaint: chandrakant, thirsty, shaking Time Seen by Provider: 06/08/18 17:35 - History of Present Illness Initial comments: 47-year-old female patient presents to the emergency department today with complaints of shortness of breath, shakiness, and cough. Patient states she's been coughing for the last 3-4 days. States that today around 3:00 she had onset of shortness of breath and an anxious feeling in her chest. States that the symptoms have persisted and she has become tearful. Patient states she did have a panic attack one time in the past that felt similar to this. Patient states that she has had a couple of episodes of vomiting since the shortness of breath started. She denies any abdominal pain. States that she has been chilled and shaky. States she is having nasal congestion. Patient denies any recent rash, abdominal pain, diarrhea, constipation, back pain, numbness, tingling, dizziness, weakness, hematuria, dysuria, urinary urgency, urinary frequency, headache, visual changes, or any other complaints. (Yina Persaud) - Related Data Home Medications Medication Instructions Recorded Confirmed Avonex 1 injection IM TU@1900 10/02/14 06/29/17 Ferrous Sulfate [Feosol] 325 mg PO BID 10/02/14 06/29/17 Insulin Glargine [Lantus] 40 units SQ QAM 10/02/14 06/29/17 Lisinopril [Prinivil] 20 mg PO QAM 10/02/14 06/29/17 lamoTRIgine [LaMICtal] 100 mg PO QAM 10/02/14 06/29/17 metFORMIN HCL [Glucophage] 1,000 mg PO AC-BID 10/02/14 06/29/17 sitaGLIPtin [Januvia] 100 mg PO DAILY 10/02/14 06/29/17 amLODIPine [Norvasc] 5 mg PO HS 12/06/14 06/29/17 Gabapentin [Neurontin] 400 mg PO TID 03/02/15 06/29/17 Insulin Glargine [Lantus] 35 unit SQ HS 03/02/15 06/29/17 Aspirin 81 mg PO DAILY 08/21/15 06/29/17 Glimepiride [Amaryl] 2 mg PO QAM 10/29/15 06/29/17 Amitriptyline HCl [Elavil] 25 mg PO HS 07/22/16 06/29/17 Glimepiride [Amaryl] 4 mg PO AC-SUPPER 12/21/16 06/29/17 Pravastatin Sodium [Pravachol] 40 mg PO HS 12/21/16 06/29/17 lamoTRIgine [LaMICtal] 150 mg PO HS 12/21/16 06/29/17 Previous Rx's Medication Instructions Recorded Omeprazole 20 mg PO DAILY #30 tablet. 12/22/16 Cyclobenzaprine [Flexeril] 10 mg PO TID #20 tab 06/29/17 Lidocaine [Lidoderm 5% Patch] 1 patch TRANSDERM DAILY #7 patch 06/29/17 Ibuprofen [Motrin] 600 mg PO Q8HR PRN #20 tab 09/27/17 Sulfamethox-Tmp 800-160Mg [Bactrim 1 each PO Q12HR #20 tab 06/08/18 DS 800-160 mg] Allergies Allergy/AdvReac Type Severity Reaction Status Date / Time No Known Allergies Allergy Verified 12/27/17 15:10 Review of Systems ROS Other: All systems not noted in ROS Statement are negative. <Yina Persaud - Last Filed: 06/08/18 18:23> ROS Other: All systems not noted in ROS Statement are negative. <Parmjit Gregory - Last Filed: 06/08/18 23:15> ROS Statement: Those systems with pertinent positive or pertinent negative responses have been documented in the HPI. Past Medical History Past Medical History: Diabetes Mellitus, Hyperlipidemia, Hypertension Additional Past Medical History / Comment(s): MS, anemia, History of Any Multi-Drug Resistant Organisms: None Reported Past Surgical History: Tubal Ligation, Uterine Ablation Additional Past Surgical History / Comment(s): TEETH REMOVAL Past Psychological History: Anxiety, Bipolar, Depression Smoking Status: Never smoker Past Alcohol Use History: None Reported Past Drug Use History: None Reported - Past Family History Mother History Unknown: Yes Family Medical History: Congestive Heart Failure (CHF) Father History Unknown: Yes Family Medical History: Coronary Artery Disease (CAD), Myocardial Infarction ([place] ) <Yina Persaud Clint - Last Filed: 06/08/18 18:23> General Exam Limitations: no limitations General appearance: alert, in no apparent distress, other (Physical well- developed, well-nourished adult female patient in no acute distress. Vital signs upon presentation are temperature 99.6F, pulse 110, respirations 18, blood pressure 150/86, pulse ox 98% on room air.) Eye exam: Present: normal appearance, PERRL, EOMI. Absent: scleral icterus, conjunctival injection, periorbital swelling ENT exam: Present: normal exam, mucous membranes moist Respiratory exam: Present: normal lung sounds bilaterally. Absent: respiratory distress, wheezes, rales, rhonchi, stridor Cardiovascular Exam: Present: regular rate, normal rhythm, normal heart sounds. Absent: systolic murmur, diastolic murmur, rubs, gallop, clicks GI/Abdominal exam: Present: soft, normal bowel sounds. Absent: distended, tenderness, guarding, rebound, rigid Neurological exam: Present: alert, oriented X3, CN II-XII intact Psychiatric exam: Present: normal affect, normal mood Skin exam: Present: warm, dry, intact, normal color. Absent: rash <Yina Persaud Clint - Last Filed: 06/08/18 18:23> Vital Signs 06/08/18 06/08/18 06/08/18 17:00 19:30 20:00 Temperature 99.6 F Pulse Rate 110 H 103 H 101 H Respiratory 18 18 18 Rate Blood Pressure 158/86 176/77 172/77 O2 Sat by Pulse 98 94 L 95 Oximetry 06/08/18 06/08/18 06/08/18 20:30 21:00 21:30 Temperature Pulse Rate 101 H 98 Respiratory 20 18 Rate Blood Pressure 157/76 197/80 213/112 O2 Sat by Pulse 100 97 Oximetry 06/08/18 22:56 Temperature Pulse Rate 105 H Respiratory 18 Rate Blood Pressure 177/79 O2 Sat by Pulse 99 Oximetry Medical Decision Making <Yina Persaud Clint - Last Filed: 06/08/18 18:23> - Lab Data Result diagrams: 06/08/18 18:30 06/08/18 21:10 - Radiology Data Radiology results: report reviewed (Computed tomography scan of the chest negative for pulmonary embolism. Negative exam.), image reviewed (Chest x-ray shows no acute process) <Parmjit Gregory - Last Filed: 06/08/18 23:15> - Medical Decision Making Patient was reevaluated by myself, Dr. Gregory. Patient states she came to the hospital secondary to feeling shaky and chilled. Patient denies ever having any sort of chest discomfort at all at any time despite multiple questions. Patient is requesting discharge home. Patient does admit to having a cough recently however states overall had has been somewhat mild. Patient did develop fever while in the emergency department. Patient has appearance of mild urinary tract infection with urinalysis. Patient also clinically has a mild bronchitis. Patient will be covered with antibiotics. Patient is advised to return if symptoms worsen. Patient states her renal function is chronically poor. Patient has been provided IV fluids and a single dose of Kayexalate for potassium. Patient will need to follow-up with her primary care physician for this. (Parmjit Gregory) - Lab Data Lab Results 06/08/18 06/08/18 06/08/18 Range/Units 17:02 18:30 18:30 WBC 15.8 H (3.8-10.6) k/uL RBC 3.31 L (3.80-5.40) m/uL Hgb 9.4 L (11.4-16.0) gm/dL Hct 29.3 L (34.0-46.0) % MCV 88.7 (80.0-100.0) fL MCH 28.4 (25.0-35.0) pg MCHC 32.0 (31.0-37.0) g/dL RDW 15.2 (11.5-15.5) % Plt Count 263 (150-450) k/uL Neutrophils % 89 % Lymphocytes % 6 % Monocytes % 4 % Eosinophils % 1 % Basophils % 0 % Neutrophils # 14.0 H (1.3-7.7) k/uL Lymphocytes # 0.9 L (1.0-4.8) k/uL Monocytes # 0.6 (0-1.0) k/uL Eosinophils # 0.2 (0-0.7) k/uL Basophils # 0.1 (0-0.2) k/uL PT (9.0-12.0) sec INR (<1.2) APTT (22.0-30.0) sec D-Dimer (<0.60) mg/L FEU Sodium (137-145) mmol/L Potassium (3.5-5.1) mmol/L Chloride (98-107) mmol/L Carbon Dioxide (22-30) mmol/L Anion Gap mmol/L BUN (7-17) mg/dL Creatinine (0.52-1.04) mg/dL Est GFR (CKD-EPI)AfAm (>60 ml/min/1.73 sqM) Est GFR (CKD-EPI)NonAf (>60 ml/min/1.73 sqM) Glucose (74-99) mg/dL POC Glucose (mg/dL) 142 H (75-99) mg/dL POC Glu Cardiac Catheterization Technologist ID Birgit Choudhary Plasma Lactic Acid Jaylan (0.7-2.0) mmol/L Calcium (8.4-10.2) mg/dL Magnesium (1.6-2.3) mg/dL Total Bilirubin (0.2-1.3) mg/dL AST (14-36) U/L ALT (9-52) U/L Alkaline Phosphatase (38-126) U/L Total Creatine Kinase 132 (30-135) U/L CK-MB (CK-2) 3.5 H (0.0-2.4) ng/mL CK-MB (CK-2) Rel Index 2.7 Troponin I 0.018 (0.000-0.034) ng/mL Total Protein (6.3-8.2) g/dL Albumin (3.5-5.0) g/dL Urine Color Urine Appearance (Clear) Urine pH (5.0-8.0) Ur Specific [place] (1.001-1.035) Urine Protein (Negative) Urine Glucose (UA) (Negative) Urine Ketones (Negative) Urine Blood (Negative) Urine Nitrite (Negative) Urine Bilirubin (Negative) Urine Urobilinogen (<2.0) mg/dL Ur Leukocyte Esterase (Negative) Urine RBC (0-5) /hpf Urine WBC (0-5) /hpf Ur Squamous Epith Cells (0-4) /hpf Urine Bacteria (None) /hpf Urine Mucus (None) /hpf Influenza Type A RNA (Not Detectd) Influenza Type B (PCR) (Not Detectd) 06/08/18 06/08/18 06/08/18 Range/Units 18:30 18:30 18:30 WBC (3.8-10.6) k/uL RBC (3.80-5.40) m/uL Hgb (11.4-16.0) gm/dL Hct (34.0-46.0) % MCV (80.0-100.0) fL MCH (25.0-35.0) pg MCHC (31.0-37.0) g/dL RDW (11.5-15.5) % Plt Count (150-450) k/uL Neutrophils % % Lymphocytes % % Monocytes % % Eosinophils % % Basophils % % Neutrophils # (1.3-7.7) k/uL Lymphocytes # (1.0-4.8) k/uL Monocytes # (0-1.0) k/uL Eosinophils # (0-0.7) k/uL Basophils # (0-0.2) k/uL PT 9.4 (9.0-12.0) sec INR 0.8 (<1.2) APTT 22.8 (22.0-30.0) sec D-Dimer 1.63 H (<0.60) mg/L FEU Sodium 137 (137-145) mmol/L Potassium 6.3 H* (3.5-5.1) mmol/L Chloride 108 H (98-107) mmol/L Carbon Dioxide 22 (22-30) mmol/L Anion Gap 7 mmol/L BUN 34 H (7-17) mg/dL Creatinine 1.47 H (0.52-1.04) mg/dL Est GFR (CKD-EPI)AfAm 49 (>60 ml/min/1.73 sqM) Est GFR (CKD-EPI)NonAf 42 (>60 ml/min/1.73 sqM) Glucose 199 H (74-99) mg/dL POC Glucose (mg/dL) (75-99) mg/dL POC Glu Cardiac Catheterization Technologist ID Plasma Lactic Acid Jaylan (0.7-2.0) mmol/L Calcium 8.5 (8.4-10.2) mg/dL Magnesium 1.4 L (1.6-2.3) mg/dL Total Bilirubin 0.1 L (0.2-1.3) mg/dL AST 17 (14-36) U/L ALT 27 (9-52) U/L Alkaline Phosphatase 102 (38-126) U/L Total Creatine Kinase (30-135) U/L CK-MB (CK-2) (0.0-2.4) ng/mL CK-MB (CK-2) Rel Index Troponin I (0.000-0.034) ng/mL Total Protein 5.5 L (6.3-8.2) g/dL Albumin 3.2 L (3.5-5.0) g/dL Urine Color Light Yellow Urine Appearance Clear (Clear) Urine pH 5.5 (5.0-8.0) Ur Specific [place] 1.013 (1.001-1.035) Urine Protein 2+ H (Negative) Urine Glucose (UA) Negative (Negative) Urine Ketones Negative (Negative) Urine Blood Small H (Negative) Urine Nitrite Negative (Negative) Urine Bilirubin Negative (Negative) Urine Urobilinogen <2.0 (<2.0) mg/dL Ur Leukocyte Esterase Trace H (Negative) Urine RBC 9 H (0-5) /hpf Urine WBC 11 H (0-5) /hpf Ur Squamous Epith Cells <1 (0-4) /hpf Urine Bacteria Rare H (None) /hpf Urine Mucus Rare H (None) /hpf Influenza Type A RNA (Not Detectd) Influenza Type B (PCR) (Not Detectd) 06/08/18 06/08/18 06/08/18 Range/Units 18:30 18:30 21:10 WBC (3.8-10.6) k/uL RBC (3.80-5.40) m/uL Hgb (11.4-16.0) gm/dL Hct (34.0-46.0) % MCV (80.0-100.0) fL MCH (25.0-35.0) pg MCHC (31.0-37.0) g/dL RDW (11.5-15.5) % Plt Count (150-450) k/uL Neutrophils % % Lymphocytes % % Monocytes % % Eosinophils % % Basophils % % Neutrophils # (1.3-7.7) k/uL Lymphocytes # (1.0-4.8) k/uL Monocytes # (0-1.0) k/uL Eosinophils # (0-0.7) k/uL Basophils # (0-0.2) k/uL PT (9.0-12.0) sec INR (<1.2) APTT (22.0-30.0) sec D-Dimer (<0.60) mg/L FEU Sodium 140 (137-145) mmol/L Potassium 5.9 H (3.5-5.1) mmol/L Chloride 109 H (98-107) mmol/L Carbon Dioxide 24 (22-30) mmol/L Anion Gap 7 mmol/L BUN 35 H (7-17) mg/dL Creatinine 1.43 H (0.52-1.04) mg/dL Est GFR (CKD-EPI)AfAm 50 (>60 ml/min/1.73 sqM) Est GFR (CKD-EPI)NonAf 44 (>60 ml/min/1.73 sqM) Glucose 148 H (74-99) mg/dL POC Glucose (mg/dL) (75-99) mg/dL POC Glu Cardiac Catheterization Technologist ID Plasma Lactic Acid Jaylan 2.0 (0.7-2.0) mmol/L Calcium 8.8 (8.4-10.2) mg/dL Magnesium (1.6-2.3) mg/dL Total Bilirubin 0.2 (0.2-1.3) mg/dL AST 20 (14-36) U/L ALT 28 (9-52) U/L Alkaline Phosphatase 101 (38-126) U/L Total Creatine Kinase (30-135) U/L CK-MB (CK-2) (0.0-2.4) ng/mL CK-MB (CK-2) Rel Index Troponin I (0.000-0.034) ng/mL Total Protein 5.8 L (6.3-8.2) g/dL Albumin 3.2 L (3.5-5.0) g/dL Urine Color Urine Appearance (Clear) Urine pH (5.0-8.0) Ur Specific [place] (1.001-1.035) Urine Protein (Negative) Urine Glucose (UA) (Negative) Urine Ketones (Negative) Urine Blood (Negative) Urine Nitrite (Negative) Urine Bilirubin (Negative) Urine Urobilinogen (<2.0) mg/dL Ur Leukocyte Esterase (Negative) Urine RBC (0-5) /hpf Urine WBC (0-5) /hpf Ur Squamous Epith Cells (0-4) /hpf Urine Bacteria (None) /hpf Urine Mucus (None) /hpf Influenza Type A RNA Not Detected (Not Detectd) Influenza Type B (PCR) Not Detected (Not Detectd) 06/08/18 Range/Units 21:55 WBC (3.8-10.6) k/uL RBC (3.80-5.40) m/uL Hgb (11.4-16.0) gm/dL Hct (34.0-46.0) % MCV (80.0-100.0) fL MCH (25.0-35.0) pg MCHC (31.0-37.0) g/dL RDW (11.5-15.5) % Plt Count (150-450) k/uL Neutrophils % % Lymphocytes % % Monocytes % % Eosinophils % % Basophils % % Neutrophils # (1.3-7.7) k/uL Lymphocytes # (1.0-4.8) k/uL Monocytes # (0-1.0) k/uL Eosinophils # (0-0.7) k/uL Basophils # (0-0.2) k/uL PT (9.0-12.0) sec INR (<1.2) APTT (22.0-30.0) sec D-Dimer (<0.60) mg/L FEU Sodium (137-145) mmol/L Potassium (3.5-5.1) mmol/L Chloride (98-107) mmol/L Carbon Dioxide (22-30) mmol/L Anion Gap mmol/L BUN (7-17) mg/dL Creatinine (0.52-1.04) mg/dL Est GFR (CKD-EPI)AfAm (>60 ml/min/1.73 sqM) Est GFR (CKD-EPI)NonAf (>60 ml/min/1.73 sqM) Glucose (74-99) mg/dL POC Glucose (mg/dL) 134 H (75-99) mg/dL POC Glu Cardiac Catheterization Technologist ID Abbey Benjamin Plasma Lactic Acid Jaylan (0.7-2.0) mmol/L Calcium (8.4-10.2) mg/dL Magnesium (1.6-2.3) mg/dL Total Bilirubin (0.2-1.3) mg/dL AST (14-36) U/L ALT (9-52) U/L Alkaline Phosphatase (38-126) U/L Total Creatine Kinase (30-135) U/L CK-MB (CK-2) (0.0-2.4) ng/mL CK-MB (CK-2) Rel Index Troponin I (0.000-0.034) ng/mL Total Protein (6.3-8.2) g/dL Albumin (3.5-5.0) g/dL Urine Color Urine Appearance (Clear) Urine pH (5.0-8.0) Ur Specific [place] (1.001-1.035) Urine Protein (Negative) Urine Glucose (UA) (Negative) Urine Ketones (Negative) Urine Blood (Negative) Urine Nitrite (Negative) Urine Bilirubin (Negative) Urine Urobilinogen (<2.0) mg/dL Ur Leukocyte Esterase (Negative) Urine RBC (0-5) /hpf Urine WBC (0-5) /hpf Ur Squamous Epith Cells (0-4) /hpf Urine Bacteria (None) /hpf Urine Mucus (None) /hpf Influenza Type A RNA (Not Detectd) Influenza Type B (PCR) (Not Detectd) Disposition <Yina Persaud - Last Filed: 06/08/18 18:23> Is patient prescribed a controlled substance at d/c from ED?: No <Parmjit Gregory - Last Filed: 06/08/18 23:15> Clinical Impression: Fever, Urinary tract infection, Bronchitis Disposition: HOME SELF-CARE Condition: Stable Instructions: Fever in Adults (ED), Acute Bronchitis (ED), Urinary Tract Infection in Women (ED) Additional Instructions: Please follow-up tomorrow with your primary care physician. You will need to have your laboratory tests rechecked, especially your potassium level within the next couple of days. Return for uncontrolled fever, if unable to breathing , chest pain of any sort, abdominal pain, worsening or change in symptoms or other concerns. Prescriptions: Sulfamethox-Tmp 800-160Mg [Bactrim DS 800-160 mg] 1 each PO Q12HR #20 tab Referrals: Aruna Boateng MD [Primary Care Provider] - 1-2 days
[2018-06-08 19:33] LABS: INR 0.8 (<1.2); Partial Thromboplastin Time 22.8 sec (22.0-30.0); Prothrombin Time 9.4 sec (9.0-12.0)
[2018-06-08 19:34] LABS: D-Dimer 1.63 mg/L FEU (<0.60)
[2018-06-08 19:40] LABS: Creatine Kinase MB 3.5 ng/mL (0.0-2.4); Potassium 6.3 mmol/L (3.5-5.1); Troponin I 0.018 ng/mL (0.000-0.034)
[2018-06-08] MEDS ORDERED: Magnesium Replacement Protocol 1 EACH MISC MISCELLANE PRN (19:44)
[2018-06-08] MEDS: MAGNESIUM SULFATE-D5W PMX 1 GM in DEXTROSE/WATER 1 100ML.BAG IVPB SCH ×3 (20:39→22:42)
--- NOTE | 2018-06-08 20:55 | CT ---
EXAMINATION TYPE: CT chest angio for PE DATE OF EXAM: 06/08/2018 COMPARISON: None HISTORY: r/o PE CT DLP: 705.8 mGycm Automated exposure control for dose reduction was used. CONTRAST: CT Chest for pulmonary embolism performed with with IV Contrast, patient injected with 80 mL of Isovu e 370. There are 3-D post processed images. FINDINGS: The lungs are clear of infiltrate. There is no pleural effusion. There is no evidence of a pulmonary mass. There is no pericardial effusion. There is no mediastinal adenopathy. There are no hilar masses. There is normal contrast opacification of the pulmonary arteries. There are no filling defects. Thoracic aorta is intact. Bony thorax is in tact. IMPRESSION: No evidence of pulmonary embolism. Negative exam.
[2018-06-08 21:34] LABS: Albumin 3.2 g/dL (3.5-5.0); Calcium 8.8 mg/dL (8.4-10.2); Potassium 5.9 mmol/L (3.5-5.1); Total Bilirubin 0.2 mg/dL (0.2-1.3); Total Protein 5.8 g/dL (6.3-8.2)
[2018-06-08] MEDS ORDERED: SODIUM CHLORIDE 0.9% 1,000 ML IV ONE (21:39)
[2018-06-08] MEDS ORDERED: ACETAMINOPHEN TAB 500 MG TAB PO STA (21:39)
[2018-06-08] MEDS ORDERED: ENALAPRILAT 1.25 MG/ML 1 ML VIAL IVP STA (21:39)
[2018-06-08 22:00] LABS: Glucose,Whole Blood 134 mg/dL (75-99)
[2018-06-08] MEDS ORDERED: SODIUM POLYSTYRENE SULFONATE 15 GM/60 ML BOTTLE PO STA (23:10)
[2018-06-08 23:36] VITALS: RESP 16
[2018-06-09 00:10] VITALS: BP 169/70; PULSE 94; TEMP 99.2
== END 2018-06-09 00:14 | disposition home or self-care (01) ==
LOC: EC 16:47
DX: J40 Bronchitis, not specified as acute or chronic (principal); N39.0 Urinary tract infection, site not specified; E11.9 Type 2 diabetes mellitus without complications; E78.5 Hyperlipidemia, unspecified; I10 Essential (primary) hypertension; G35 Multiple sclerosis; D64.9 Anemia, unspecified; F32.9 Major depressive disorder, single episode, unspecified; Z82.49 Family history of ischemic heart disease and other diseases of the circulatory system; Z79.4 Long term (current) use of insulin; Z79.82 Long term (current) use of aspirin; Z79.899 Other long term (current) drug therapy
CPT/HCPCS: 99285; 96365 ×2; 96366; 96367; 96375; 96361; 36415; 93005; 85379; 80053; 82550; 82553; 83605; 83735; 84484; 85025; 85610; 85730; 81001; 87040; 87086; 87077; 87186; 87502; 71046; 71275; J0696; J3475; Q9967

== ENCOUNTER → 2019-01-19 | Outpatient (CLI) | payer OTHER | END | disposition home or self-care (01) | LOC: LABWHC1 11:21 | PROVIDERS: ATTEND Nurse Practitioner Acute Care | DX: G35 Multiple sclerosis (principal) | CPT/HCPCS: 36415 ==

== ENCOUNTER 2019-06-25 23:15 | Inpatient (IN) | payer OTHER ==
[2019-06-25] MEDS: SODIUM CHLORIDE 0.9% 500 ML 500 ML IV SCH ×2 (23:25→23:45)
[2019-06-25] MEDS ORDERED: SODIUM BICARB 8.4% 50 ML SYR (1 MEQ/ML) ONE (23:30)
[2019-06-25] MEDS ORDERED: ATROPINE SULFATE 0.1 MG/ML 10ML SYRINGE ONE (23:30)
[2019-06-25] MEDS ORDERED: EPINEPHrine 10 ML SYRINGE (0.1 MG/ML) ONE (23:30)
[2019-06-25] MEDS ORDERED: PROPOFOL 1,000 MG in EMPTY BAG 1 BAG IV ONE (23:41)
[2019-06-25 23:50] LABS: Glucose,Whole Blood 330 mg/dL (75-99)
--- NOTE | 2019-06-25 23:51 | XR ---
EXAMINATION TYPE: XR chest 1V confirm line [facility] DATE OF EXAM: 06/25/2019 COMPARISON: 06/08/2018 HISTORY: Respiratory failure TECHNIQUE: FINDINGS: Endotracheal tube is 2.2 cm from the ruby. There is pulmonary interstitial and alveolar e dianne. Heart appears enlarged. There is nasogastric tube in the stomach. There are chest leads. IMPRESSION: There is new pulmonary edema compared to last exam that could be acute heart failure.
[2019-06-26] MEDS ORDERED: NOREPINEPHRINE 32 MG in SODIUM CHLORIDE 0.9% 218 ML IV ONE ×2
[2019-06-26 00:09] LABS: Basophils # (A) 0.3 k/uL (0-0.2); Basophils % (A) 2 %; Eosinophils # (A) 0.4 k/uL (0-0.7); Eosinophils % (A) 2 %; HCT 32.9 % (34.0-46.0); HGB 10.2 gm/dL (11.4-16.0); Hypochromasia Slight; Lymphocytes # (A) 4.9 k/uL (1.0-4.8); Lymphocytes % (A) 30 %; MCH 28.5 pg (25.0-35.0); Mean Platelet Volume 7.1; Monocytes # (A) 0.7 k/uL (0-1.0); Monocytes % (A) 4 %; Neutrophils # (A) 9.6 k/uL (1.3-7.7); Neutrophils % (A) 60 %; Platelet Count 316 k/uL (150-450); RBC 3.58 m/uL (3.80-5.40); RDW 14.3 % (11.5-15.5)
--- NOTE | 2019-06-26 00:10 | ED ---
CPR HPI - General Chief Complaint: Cardiac Arrest/CPR Stated Complaint: Diff Breathing Source: patient, family Mode of arrival: wheelchair Limitations: no limitations - History of Present Illness Initial Comments: Ruby is a 48-year-old female with extensive past medical history is documented below. The patient presented to the ER via private vehicle today for evaluation of shortness of breath. Per the the patient had some coughing yesterday and seemed short of breath throughout the day today. Approximately one hour prior to arrival patient really seemed to have some struggle breathing at which time he decided to bring her to hospital. Upon entering triage patient was screaming that she couldn't breathe, she was wheeled directly back to the ER for evaluation at which time she became cyanotic apneic and was noted to lose pulses. - Related Data Home Medications Medication Instructions Recorded Confirmed Avonex 1 injection IM TU@1900 10/02/14 12/27/18 Ferrous Sulfate [Feosol] 325 mg PO BID 10/02/14 12/27/18 lamoTRIgine [LaMICtal] 100 mg PO [facility] 10/02/14 12/27/18 sitaGLIPtin [Januvia] 100 mg PO DAILY 10/02/14 12/27/18 Aspirin 81 mg PO DAILY 08/21/15 12/27/18 Amitriptyline HCl [Elavil] 25 mg PO HS 07/22/16 12/27/18 Pravastatin Sodium [Pravachol] 40 mg PO HS 12/21/16 12/27/18 lamoTRIgine [LaMICtal] 150 mg PO HS 12/21/16 12/27/18 Insulin Glargine,Hum.rec.anlog 40 units SQ 12/20/18 12/27/18 [Basaglar Kwikpen U-100] Magnesium 400 mg PO BID 12/20/18 12/27/18 hydrALAZINE HCL [Apresoline] 100 mg PO TID 12/20/18 12/27/18 Baclofen [Lioresal] 20 mg PO TID 12/27/18 12/27/18 Carvedilol 25 mg PO BID 12/27/18 12/27/18 FLUoxetine HCL [PROzac] 20 mg PO DAILY 12/27/18 12/27/18 Furosemide [Lasix] 20 mg PO DAILY 12/27/18 12/27/18 Gabapentin [Neurontin] 400 mg PO TID 12/27/18 12/27/18 Insulin Glargine,Hum.rec.anlog 40 unit SQ HS 12/27/18 12/27/18 [Basaglar Kwikpen U-100] Insulin Lispro [Admelog] 0 unit SQ TID 12/27/18 12/27/18 Niacin 500 mg PO DAILY 12/27/18 12/27/18 Pioglitazone [Actos] 15 mg PO DAILY 12/27/18 12/27/18 Allergies Allergy/AdvReac Type Severity Reaction Status Date / Time No Known Allergies Allergy Verified 06/25/19 23:43 Review of Systems ROS Statement: Those systems with pertinent positive or pertinent negative responses have been documented in the HPI. ROS Other: All systems not noted in ROS Statement are negative. Past Medical History Past Medical History: Diabetes Mellitus, Hyperlipidemia, Hypertension Additional Past Medical History / Comment(s): MS, anemia, History of Any Multi-Drug Resistant Organisms: None Reported Past Surgical History: Tubal Ligation, Uterine Ablation Additional Past Surgical History / Comment(s): TEETH REMOVAL Past Psychological History: Anxiety, Bipolar, Depression Smoking Status: Current every day smoker Past Alcohol Use History: Occasional Past Drug Use History: None Reported - Past Family History Mother History Unknown: Yes Family Medical History: Congestive Heart Failure (CHF) Father History Unknown: Yes Family Medical History: Coronary Artery Disease (CAD), Myocardial Infarction (NH) General Exam - General Exam Comments Initial Comments: Physical Exam GENERAL: Morbidly obese Cyanotic pulseless and apneic upon my initial evaluation HENT: Normocephalic, Atraumatic. EYES: PERRL, EOMI PULMONARY: Apneic with coarse breath sounds bilaterally CARDIOVASCULAR: Patient was pulseless, became bradycardic after code and then tachycardic, After pulses were obtained rhythm was regular no murmur rub or gallops ABDOMEN: Obese, no acute abnormality SKIN: Skin initially cyanotic, return normal coloration after resuscitation : Normal external genitalia NEUROLOGIC: Initially unresponsive however moving all extremities after resuscitation requiring restraints and sedation MUSCULOSKELETAL: Moving all extremities with no apparent injury PSYCHIATRIC: Unable to assess Limitations: no limitations Course Vital Signs 06/25/19 06/25/19 06/26/19 23:25 23:36 01:35 Temperature 98.3 F 98.6 F Pulse Rate 36 L 121 H 85 Respiratory 4 L 12 14 Rate Blood Pressure 53/38 176/84 146/90 O2 Sat by Pulse 76 L 88 L 100 Oximetry 06/26/19 06/26/19 02:38 02:55 Temperature 98.0 F Pulse Rate 78 80 Respiratory 14 Rate Blood Pressure 129/69 O2 Sat by Pulse 99 Oximetry Procedures - Intubation Laryngoscope: fiber optic video scope ET Tube Size: 7.5 ET Tube Uncuffed: No Tube Secured Depth (cm): 24 Tube Secured Location: teeth Tube Placement Confirmation: visualized tube passing through cords, equal breath sounds bilaterally, no breath sounds over epigastrium, confirmation by capnometry Patient Tolerated Procedure: well Intubation Complications: none Additional Comments: Patient unresponsive, intubation occurred during a respiratory arrest Medical Decision Making - Medical Decision Making The patient was immediately brought back to a room at which time she became cyanotic apneic and was noted to be pulseless Resuscitation was initiated patient was moved to the resuscitation bay with CPR in progress and signed patient was intubated using a [place] scope Patient received 2 A of epinephrine and 1 atropine for bradycardia, patient then regained pulses A full cardiac and septic workup was initiated Chest x-ray reveals pulmonary edema, tube in good position Labs reveal hyperkalemia - treatment with insulin, bicarb, glucose, Inderal and Lasix was initiated Patient is influenza-negative Patient care was discussed with Dr. Mcconnell who agrees with plan for admission requests IV antibiotics were given for possible aspiration pneumonia. Patient care was discussed with the shirt creaser Dr. Eisenberg who requests we not perform a PE study as it would likely cause kidney damage given the patient's acute kidney injury. Recommends treatment for an ammonia, echo in the morning Lasix for fluid overload. These orders were placed. Cardiology was consult. Patient was transferred to the ICU. - Lab Data Result diagrams: 06/25/19 23:28 06/26/19 01:49 Lab Results 06/25/19 06/25/19 06/25/19 Range/Units 23:28 23:28 23:28 WBC 16.0 H (3.8-10.6) k/uL RBC 3.58 L (3.80-5.40) m/uL Hgb 10.2 L (11.4-16.0) gm/dL Hct 32.9 L (34.0-46.0) % MCV 92.0 (80.0-100.0) fL MCH 28.5 (25.0-35.0) pg MCHC 31.0 (31.0-37.0) g/dL RDW 14.3 (11.5-15.5) % Plt Count 316 (150-450) k/uL Neutrophils % 60 % Lymphocytes % 30 % Monocytes % 4 % Eosinophils % 2 % Basophils % 2 % Neutrophils # 9.6 H (1.3-7.7) k/uL Lymphocytes # 4.9 H (1.0-4.8) k/uL Monocytes # 0.7 (0-1.0) k/uL Eosinophils # 0.4 (0-0.7) k/uL Basophils # 0.3 H (0-0.2) k/uL Hypochromasia Slight PT (9.0-12.0) sec INR (<1.2) APTT (22.0-30.0) sec Sample Site ABG pH (7.35-7.45) ABG pCO2 (35-45) mmHg ABG pO2 (83-108) mmHg ABG HCO3 (21-25) mmol/L ABG Total CO2 (19-24) mmol/L ABG O2 Saturation (94-97) % ABG Base Excess mmol/L Diego Test FiO2 % Sodium 141 (137-145) mmol/L Potassium 6.2 H* (3.5-5.1) mmol/L Chloride 107 (98-107) mmol/L Carbon Dioxide 23 (22-30) mmol/L Anion Gap 11 mmol/L BUN 45 H (7-17) mg/dL Creatinine 2.03 H (0.52-1.04) mg/dL Est GFR (CKD-EPI)AfAm 33 (>60 ml/min/1.73 sqM) Est GFR (CKD-EPI)NonAf 28 (>60 ml/min/1.73 sqM) Glucose 295 H (74-99) mg/dL POC Glucose (mg/dL) (75-99) mg/dL POC Glu Steamfitter Apprentice ID Lactic Ac Sepsis Rflx Plasma Lactic Acid Jaylan 5.5 H* (0.7-2.0) mmol/L Calcium 9.3 (8.4-10.2) mg/dL Total Bilirubin 0.3 (0.2-1.3) mg/dL AST 23 (14-36) U/L ALT 21 (4-34) U/L Alkaline Phosphatase 152 H (38-126) U/L Creatine Kinase 134 (30-135) U/L Troponin I (0.000-0.034) ng/mL Total Protein 7.0 (6.3-8.2) g/dL Albumin 3.9 (3.5-5.0) g/dL Urine Color Urine Appearance (Clear) Urine pH (5.0-8.0) Ur Specific [place] (1.001-1.035) Urine Protein (Negative) Urine Glucose (UA) (Negative) Urine Ketones (Negative) Urine Blood (Negative) Urine Nitrite (Negative) Urine Bilirubin (Negative) Urine Urobilinogen (<2.0) mg/dL Ur Leukocyte Esterase (Negative) Urine RBC (0-5) /hpf Urine WBC (0-5) /hpf Ur Squamous Epith Cells (0-4) /hpf Urine Bacteria (None) /hpf Urine Mucus (None) /hpf Influenza Type A RNA (Not Detectd) Influenza Type B (PCR) (Not Detectd) 06/25/19 06/25/19 06/25/19 Range/Units 23:28 23:28 23:48 WBC (3.8-10.6) k/uL RBC (3.80-5.40) m/uL Hgb (11.4-16.0) gm/dL Hct (34.0-46.0) % MCV (80.0-100.0) fL MCH (25.0-35.0) pg MCHC (31.0-37.0) g/dL RDW (11.5-15.5) % Plt Count (150-450) k/uL Neutrophils % % Lymphocytes % % Monocytes % % Eosinophils % % Basophils % % Neutrophils # (1.3-7.7) k/uL Lymphocytes # (1.0-4.8) k/uL Monocytes # (0-1.0) k/uL Eosinophils # (0-0.7) k/uL Basophils # (0-0.2) k/uL Hypochromasia PT 9.4 (9.0-12.0) sec INR 0.8 (<1.2) APTT 21.9 L (22.0-30.0) sec Sample Site ABG pH (7.35-7.45) ABG pCO2 (35-45) mmHg ABG pO2 (83-108) mmHg ABG HCO3 (21-25) mmol/L ABG Total CO2 (19-24) mmol/L ABG O2 Saturation (94-97) % ABG Base Excess mmol/L Diego Test FiO2 % Sodium (137-145) mmol/L Potassium (3.5-5.1) mmol/L Chloride (98-107) mmol/L Carbon Dioxide (22-30) mmol/L Anion Gap mmol/L BUN (7-17) mg/dL Creatinine (0.52-1.04) mg/dL Est GFR (CKD-EPI)AfAm (>60 ml/min/1.73 sqM) Est GFR (CKD-EPI)NonAf (>60 ml/min/1.73 sqM) Glucose (74-99) mg/dL POC Glucose (mg/dL) 330 H (75-99) mg/dL POC Glu Steamfitter Apprentice ID Megha Tyler Lactic Ac Sepsis Rflx Plasma Lactic Acid Jaylan (0.7-2.0) mmol/L Calcium (8.4-10.2) mg/dL Total Bilirubin (0.2-1.3) mg/dL AST (14-36) U/L ALT (4-34) U/L Alkaline Phosphatase (38-126) U/L Creatine Kinase (30-135) U/L Troponin I <0.012 (0.000-0.034) ng/mL Total Protein (6.3-8.2) g/dL Albumin (3.5-5.0) g/dL Urine Color Urine Appearance (Clear) Urine pH (5.0-8.0) Ur Specific [place] (1.001-1.035) Urine Protein (Negative) Urine Glucose (UA) (Negative) Urine Ketones (Negative) Urine Blood (Negative) Urine Nitrite (Negative) Urine Bilirubin (Negative) Urine Urobilinogen (<2.0) mg/dL Ur Leukocyte Esterase (Negative) Urine RBC (0-5) /hpf Urine WBC (0-5) /hpf Ur Squamous Epith Cells (0-4) /hpf Urine Bacteria (None) /hpf Urine Mucus (None) /hpf Influenza Type A RNA (Not Detectd) Influenza Type B (PCR) (Not Detectd) 06/25/19 06/26/19 06/26/19 Range/Units 23:55 00:10 00:30 WBC (3.8-10.6) k/uL RBC (3.80-5.40) m/uL Hgb (11.4-16.0) gm/dL Hct (34.0-46.0) % MCV (80.0-100.0) fL MCH (25.0-35.0) pg MCHC (31.0-37.0) g/dL RDW (11.5-15.5) % Plt Count (150-450) k/uL Neutrophils % % Lymphocytes % % Monocytes % % Eosinophils % % Basophils % % Neutrophils # (1.3-7.7) k/uL Lymphocytes # (1.0-4.8) k/uL Monocytes # (0-1.0) k/uL Eosinophils # (0-0.7) k/uL Basophils # (0-0.2) k/uL Hypochromasia PT (9.0-12.0) sec INR (<1.2) APTT (22.0-30.0) sec Sample Site Left Radial ABG pH 7.21 L (7.35-7.45) ABG pCO2 56 H (35-45) mmHg ABG pO2 >400 H (83-108) mmHg ABG HCO3 23 (21-25) mmol/L ABG Total CO2 24 (19-24) mmol/L ABG O2 Saturation 99.0 H (94-97) % ABG Base Excess -5.3 mmol/L Diego Test Yes FiO2 100 % Sodium (137-145) mmol/L Potassium (3.5-5.1) mmol/L Chloride (98-107) mmol/L Carbon Dioxide (22-30) mmol/L Anion Gap mmol/L BUN (7-17) mg/dL Creatinine (0.52-1.04) mg/dL Est GFR (CKD-EPI)AfAm (>60 ml/min/1.73 sqM) Est GFR (CKD-EPI)NonAf (>60 ml/min/1.73 sqM) Glucose (74-99) mg/dL POC Glucose (mg/dL) (75-99) mg/dL POC Glu Steamfitter Apprentice ID Lactic Ac Sepsis Rflx Plasma Lactic Acid Jaylan (0.7-2.0) mmol/L Calcium (8.4-10.2) mg/dL Total Bilirubin (0.2-1.3) mg/dL AST (14-36) U/L ALT (4-34) U/L Alkaline Phosphatase (38-126) U/L Creatine Kinase (30-135) U/L Troponin I (0.000-0.034) ng/mL Total Protein (6.3-8.2) g/dL Albumin (3.5-5.0) g/dL Urine Color Light Yellow Urine Appearance Clear (Clear) Urine pH 6.5 (5.0-8.0) Ur Specific [place] 1.011 (1.001-1.035) Urine Protein 2+ H (Negative) Urine Glucose (UA) 3+ H (Negative) Urine Ketones Negative (Negative) Urine Blood Trace H (Negative) Urine Nitrite Negative (Negative) Urine Bilirubin Negative (Negative) Urine Urobilinogen <2.0 (<2.0) mg/dL Ur Leukocyte Esterase Negative (Negative) Urine RBC 9 H (0-5) /hpf Urine WBC 4 (0-5) /hpf Ur Squamous Epith Cells 1 (0-4) /hpf Urine Bacteria Rare H (None) /hpf Urine Mucus Rare H (None) /hpf Influenza Type A RNA Not Detected (Not Detectd) Influenza Type B (PCR) Not Detected (Not Detectd) 06/26/19 Range/Units 00:50 WBC (3.8-10.6) k/uL RBC (3.80-5.40) m/uL Hgb (11.4-16.0) gm/dL Hct (34.0-46.0) % MCV (80.0-100.0) fL MCH (25.0-35.0) pg MCHC (31.0-37.0) g/dL RDW (11.5-15.5) % Plt Count (150-450) k/uL Neutrophils % % Lymphocytes % % Monocytes % % Eosinophils % % Basophils % % Neutrophils # (1.3-7.7) k/uL Lymphocytes # (1.0-4.8) k/uL Monocytes # (0-1.0) k/uL Eosinophils # (0-0.7) k/uL Basophils # (0-0.2) k/uL Hypochromasia PT (9.0-12.0) sec INR (<1.2) APTT (22.0-30.0) sec Sample Site ABG pH (7.35-7.45) ABG pCO2 (35-45) mmHg ABG pO2 (83-108) mmHg ABG HCO3 (21-25) mmol/L ABG Total CO2 (19-24) mmol/L ABG O2 Saturation (94-97) % ABG Base Excess mmol/L Diego Test FiO2 % Sodium (137-145) mmol/L Potassium (3.5-5.1) mmol/L Chloride (98-107) mmol/L Carbon Dioxide (22-30) mmol/L Anion Gap mmol/L BUN (7-17) mg/dL Creatinine (0.52-1.04) mg/dL Est GFR (CKD-EPI)AfAm (>60 ml/min/1.73 sqM) Est GFR (CKD-EPI)NonAf (>60 ml/min/1.73 sqM) Glucose (74-99) mg/dL POC Glucose (mg/dL) (75-99) mg/dL POC Glu Steamfitter Apprentice ID Lactic Ac Sepsis Rflx Y Plasma Lactic Acid Jaylan (0.7-2.0) mmol/L Calcium (8.4-10.2) mg/dL Total Bilirubin (0.2-1.3) mg/dL AST (14-36) U/L ALT (4-34) U/L Alkaline Phosphatase (38-126) U/L Creatine Kinase (30-135) U/L Troponin I (0.000-0.034) ng/mL Total Protein (6.3-8.2) g/dL Albumin (3.5-5.0) g/dL Urine Color Urine Appearance (Clear) Urine pH (5.0-8.0) Ur Specific [place] (1.001-1.035) Urine Protein (Negative) Urine Glucose (UA) (Negative) Urine Ketones (Negative) Urine Blood (Negative) Urine Nitrite (Negative) Urine Bilirubin (Negative) Urine Urobilinogen (<2.0) mg/dL Ur Leukocyte Esterase (Negative) Urine RBC (0-5) /hpf Urine WBC (0-5) /hpf Ur Squamous Epith Cells (0-4) /hpf Urine Bacteria (None) /hpf Urine Mucus (None) /hpf Influenza Type A RNA (Not Detectd) Influenza Type B (PCR) (Not Detectd) - EKG Data -: EKG Interpreted by Me EKG Comments: EKG was obtained post cardiac arrest. EKG was obtained at 2342, rate is 113 rhythm is sinus tachycardia normal axis, normal intervals, WV 156, QRS 94, QTC is 463. No acute ST elevations or depressions evidence of acute ischemia or infarction. Critical Care Time Critical Care Time: Yes Total Critical Care Time: 45 Critical Care Time: Critical Care Time Critical care time was exclusive of separately billable procedures and treating other patients and teaching time. Critical care was necessary to treat or prevent imminent or life-threatening deterioration. Given the critical condition in which the patient arrived, the patient was immediately assessed by myself and the nurse, and cardiac monitoring initiated due to the potential for rapid decompensation of the patient's clinical condition. During the course of the patients stay, I spent a considerable amount of time at the bedside performing serial re-evaluations of the patient's hemodynamic and clinical status because of the recognized potential threat to li fe or limb in this condition. I then had a chance to review not only all of the available current laboratory and radiographic studies obtained today, but I also reviewed old records available to me at the time. Additionally, any ancillary information available including generator mechanic records were reviewed. Sequential vital signs were obtained. Disposition Clinical Impression: Cardiac arrest, Respiratory arrest, Acute kidney injury, Hyperkalemia, Multiple sclerosis, Morbid obesity Disposition: ADMITTED IP TO THIS HOSP Condition: Critical Is patient prescribed a controlled substance at d/c from ED?: No
[2019-06-26 00:25] LABS: INR 0.8 (<1.2); Partial Thromboplastin Time 21.9 sec (22.0-30.0); Prothrombin Time 9.4 sec (9.0-12.0)
[2019-06-26 00:33] LABS: ABG Base Excess -5.3 mmol/L; ABG HCO3 23 mmol/L (21-25); ABG PCO2 56 mmHg (35-45); ABG PH 7.21 (7.35-7.45); ABG PO2 >400 mmHg (83-108); ABG TCO2 24 mmol/L (19-24); Allen Test Performed? Yes
[2019-06-26 00:35] LABS: Albumin 3.9 g/dL (3.5-5.0); Calcium 9.3 mg/dL (8.4-10.2); Total Bilirubin 0.3 mg/dL (0.2-1.3)
[2019-06-26 00:49] LABS: Appearance,Urine Clear (Clear); Bacteria,Urine Rare /hpf; Bilirubin,Urine Negative (Negative); Blood,Urine Trace (Negative); Color,Urine Light Yellow; Glucose,Urine (UA) 3+ (Negative); Ketones,Urine Negative (Negative); Leukocyte Esterase,Urine Negative (Negative); Mucus,Urine Rare /hpf; Nitrite,Urine Negative (Negative); PH, Urine 6.5 (5.0-8.0); Protein,Urine 2+ (Negative); RBC,Urine 9 /hpf (0-5); Specific Gravity,Urine 1.011 (1.001-1.035); Squamous Epithelial Cell,Urine 1 /hpf (0-4); Urobilinogen,Urine <2.0 mg/dL (<2.0); WBC,Urine 4 /hpf (0-5)
[2019-06-26 00:49] LABS: Potassium 6.2 mmol/L (3.5-5.1)
[2019-06-26] MEDS ORDERED: SODIUM BICARB 8.4% 50 ML SYR (1 MEQ/ML) IV ONE (00:49)
[2019-06-26] MEDS ORDERED: INSULIN REGULAR 100 UNIT/ML VIAL IV ONE ×2 (00:49→07:45)
[2019-06-26] MEDS ORDERED: DEXTROSE 10 % IN WATER 250 ML IV ONE (00:49)
[2019-06-26] MEDS ORDERED: ALBUTEROL NEB (CONC) 2.5 MG/0.5 ML INHALATION ONE (00:49)
[2019-06-26] MEDS ORDERED: CALCIUM GLUCONATE 1 GM in SODIUM CHLORIDE 0.9% 100 ML IVPB ONE ×2 (01:00→07:45)
[2019-06-26] MEDS ORDERED: methylPREDNISolone SOD SUCCI 125 MG/2 ML VIAL IV STA (01:01)
[2019-06-26] MEDS ORDERED: FUROSEMIDE 10 MG/ML 4 ML VIAL IV STA (01:01)
[2019-06-26] MEDS ORDERED: NALOXONE 0.4 MG/ML 1 ML VIAL IV PRN (01:15)
[2019-06-26] MEDS: MIDAZOLAM 1 MG/ML 5 ML VIAL IV PRN ×2 (01:25→02:27)
[2019-06-26 02:20] LABS: Glucose,Whole Blood 206 mg/dL (75-99)
[2019-06-26] MEDS ORDERED: LEVOFLOXACIN 750MG-D5W PMX 750 MG in DEXTROSE/WATER 1 150ML.BAG IVPB ONE ×2 (02:44→05:00)
[2019-06-26 03:22] LABS: Glucose,Whole Blood 233 mg/dL (75-99)
[2019-06-26 03:58] LABS: ABG Base Excess 1.6 mmol/L; ABG HCO3 27 mmol/L (21-25); ABG Oxygen Saturation 99.1 % (94-97); ABG PCO2 47 mmHg (35-45); ABG PH 7.36 (7.35-7.45); ABG PO2 157 mmHg (83-108); ABG TCO2 28 mmol/L (19-24); Allen Test Performed? Yes
[2019-06-26 04:46] LABS: Basophils % (A) 0 %; Eosinophils # (A) 0.1 k/uL (0-0.7); Eosinophils % (A) 1 %; HCT 30.9 % (34.0-46.0); HGB 9.9 gm/dL (11.4-16.0); Hypochromasia Slight; Lymphocytes % (A) 6 %; MCH 29.3 pg (25.0-35.0); MCHC 32.2 g/dL (31.0-37.0); MCV 91.1 fL (80.0-100.0); Mean Platelet Volume 6.9; Monocytes # (A) 0.4 k/uL (0-1.0); Monocytes % (A) 2 %; Neutrophils # (A) 15.2 k/uL (1.3-7.7); Neutrophils % (A) 91 %; Platelet Count 219 k/uL (150-450); RBC 3.39 m/uL (3.80-5.40); RDW 14.1 % (11.5-15.5); WBC 16.7 k/uL (3.8-10.6)
[2019-06-26] MEDS ORDERED: ACETAMINOPHEN TAB 325 MG TAB PO PRN (04:52)
[2019-06-26 04:55] LABS: Albumin 3.5 g/dL (3.5-5.0); Calcium 8.6 mg/dL (8.4-10.2); Magnesium 2.2 mg/dL (1.6-2.3); Phosphorus 4.1 mg/dL (2.5-4.5); Total Bilirubin 0.3 mg/dL (0.2-1.3); Total Protein 6.4 g/dL (6.3-8.2)
[2019-06-26 05:21] LABS: Potassium 6.3 mmol/L (3.5-5.1)
[2019-06-26] MEDS: PIPERACILLIN-TAZOBACTAM 3.375 GM in SODIUM CHLORIDE 0.9% 100 ML IVPB SCH ×2 (05:38→10:34)
[2019-06-26] MEDS: SODIUM CHLORIDE 0.9% 1,000 ML IV SCH ×2 (05:39→08:39)
--- NOTE | 2019-06-26 05:51 | XR ---
EXAMINATION TYPE: XR chest 1V portable DATE OF EXAM: 06/26/2019 HISTORY: Tube placement. REFERENCE: Previous study dated 06/25/2019. FINDINGS: The patient is ET tube and NG tube remain in place, unchanged in appearance. The heart is enlarged. There is vascular congestion and mild heart failure. I cannot exclude tiny jerman ateral effusions. IMPRESSION: CONTINUING CHANGES OF CONGESTIVE HEART FAILURE.
[2019-06-26 06:07] VITALS: RESP 18
[2019-06-26] MEDS ORDERED: INSULIN ASPART (NovoLOG) 100 UNIT/ML VIAL SQ SCH ×2 (07:30→12:00)
[2019-06-26] MEDS: PROPOFOL 1,000 MG in EMPTY BAG 1 BAG IV SCH ×2 (07:30→11:37)
[2019-06-26] MEDS ORDERED: SODIUM BICARB 8.4% 50 ML SYR (1 MEQ/ML) IV STA (07:33)
[2019-06-26] MEDS ORDERED: DEXTROSE 10 % IN WATER 250 ML IV STA (07:34)
[2019-06-26] MEDS ORDERED: HEPARIN SODIUM,PORCINE 5,000 UNIT/ML 1 ML VIAL SQ SCH (08:00)
--- NOTE | 2019-06-26 08:21 | CT ---
EXAMINATION TYPE: CT brain wo con DATE OF EXAM: 06/26/2019 COMPARISON: Previous study dated 06/28/2016 HISTORY: Neurological changes CT DLP: 1040.4 mGycm Automated exposure control for dose reduction was used. FINDINGS: There is been a previous left occipital infarct. This is unchanged from previous. Central structures are midline. There is no evidence of hydrocephalus. No acute focal lesion, mass ef fect or midline shift is seen. I do not see evidence of intracranial blood. Visualized portions of the sinuses and mastoids are clear. The bony calvarium is intact. IMPRESSION: 1. NO ACUTE INTRACRANIAL ABNORMALITY. 2. 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
[2019-06-26] MEDS ORDERED: CHLORHEXIDINE GLUCONATE 15 ML CUP MUCOUS MEM SCH (09:00)
[2019-06-26] MEDS ORDERED: PANTOPRAZOLE 40 MG/10 ML VIAL IV SCH (09:00)
[2019-06-26] MEDS ORDERED: LORazepam 2 MG/ML INJ IV STA (09:23)
[2019-06-26] MEDS ORDERED: levETIRAcetam IV 1,000 MG in SALINE 1 100ML.BAG IVPB SCH (09:30)
--- NOTE | 2019-06-26 09:50 | P.CNPUL ---
History of Present Illness Consult date: 06/26/19 Reason for consult: dyspnea History of present illness: A 48-year-old female patient, obese, known history of MS, known history of diabetes mellitus, peripheral neuropathy and hypertension and hyperlipidemia and [place], came into the emergency department yesterday complaining of shortness of breath throughout the day. Apparently around 1 hour prior to her coming to the ED she was struggling with her breathing and she decided to come into the hospital. Upon entering triage, the patient was screaming that she can breathe and she was wheeled in to the emergency and eventually she became cyanotic and apneic and she went into full blown respiratory failure. She was in sinus bradycardia and pulses were noted. The patient received a brief resuscitation with CPR. The patient received a total of 2 doses of epinephrine and atropine and 1 bicarb infusion. The whole resuscitation process was around 10 minutes. During this time the patient was intubated and placed on a mechanical ventilator. The post intubation chest x-ray showed acute pulmonary edema. She is currently intubated with a #7.5 ET tube. She was also found to be in acute kidney injury. Creatinine was at 2.03 and the potassium level was also at X.2 and her lactic acid level was at 5.5. The patient received treatment for hyperkalemia with a combination of D50 sugar and insulin in addition to bicarb. The same was repeated earlier this morning as the patient's potassium level continued to be elevated. Note that the patient earlier this morning started developing jerking body movements brief tonic-clonic in nature and these were noted even while being on propofol at 40 g per KG per minute. Seizure was suspected. Immediate CAT scan of the brain was done that showed no acute abnormalities. The patient has an old left occipital infarct. Currently she is still doing same jerky body movements episodically every 30 seconds to minutes. The patient was given another 4 mg of Ativan and Keppra was ordered. Chest x- ray showing pulmonary edema. The patient is on assist control mode of ventilation with a rate of 80 with a tidal volume of 450 and FiO2 of 60% with a PEEP of 5. The blood gases from this morning shows a 7.36 with a pCO2 of 47 and pO2 of 157 and this was on FiO2 of 60%. She is on no pressors for now. She is receiving IV fluids in the form of normal saline at the rate of 100 mL an hour. She is afebrile. No neck stiffness. She has leukocytosis with a white cell count of 16. She has diabetes mellitus and there is no hypoglycemia for now. She has a Fernández catheter in the urine output is in the order of 2 50 mL an hour. Lactic acid level is up 0.9. Her troponins are negative. CPK is at 134. Urine drug screen is pending for now. Influenza screen was negative. Review of Systems ROS unobtainable: due to endotracheal tube Past Medical History Past Medical History: Diabetes Mellitus, Hyperlipidemia, Hypertension Additional Past Medical History / Comment(s): MS, obesity, diabetes mellitus type 2, diabetic peripheral neuropathy History of Any Multi-Drug Resistant Organisms: None Reported Past Surgical History: Tubal Ligation, Uterine Ablation Additional Past Surgical History / Comment(s): TEETH REMOVAL Past Psychological History: Anxiety, Bipolar, Depression Smoking Status: Current every day smoker Past Alcohol Use History: Occasional Past Drug Use History: None Reported - Past Family History Mother History Unknown: Yes Family Medical History: Congestive Heart Failure (CHF) Father History Unknown: Yes Family Medical History: Coronary Artery Disease (CAD), Myocardial Infarction (DE) Medications and Allergies Home Medications Medication Instructions Recorded Confirmed Type Avonex 1 injection IM TU@1900 10/02/14 12/27/18 History Ferrous Sulfate [Feosol] 325 mg PO BID 10/02/14 12/27/18 History lamoTRIgine [LaMICtal] 100 mg PO QAM 10/02/14 12/27/18 History sitaGLIPtin [Januvia] 100 mg PO DAILY 10/02/14 12/27/18 History Aspirin 81 mg PO DAILY 08/21/15 12/27/18 History Amitriptyline HCl [Elavil] 25 mg PO HS 07/22/16 12/27/18 History Pravastatin Sodium [Pravachol] 40 mg PO HS 12/21/16 12/27/18 History lamoTRIgine [LaMICtal] 150 mg PO HS 12/21/16 12/27/18 History Insulin Glargine,Hum.rec.anlog 40 units SQ HS 12/20/18 12/27/18 History [Basaglar Kwikpen U-100] Magnesium 400 mg PO BID 12/20/18 12/27/18 History hydrALAZINE HCL [Apresoline] 100 mg PO TID 12/20/18 12/27/18 History Baclofen [Lioresal] 20 mg PO TID 12/27/18 12/27/18 History Carvedilol 25 mg PO BID 12/27/18 12/27/18 History FLUoxetine HCL [PROzac] 20 mg PO DAILY 12/27/18 12/27/18 History Furosemide [Lasix] 20 mg PO DAILY 12/27/18 12/27/18 History Gabapentin [Neurontin] 400 mg PO TID 12/27/18 12/27/18 History Insulin Glargine,Hum.rec.anlog 40 unit SQ HS 12/27/18 12/27/18 History [Basaglar Kwikpen U-100] Insulin Lispro [Admelog] 0 unit SQ TID 12/27/18 12/27/18 History Niacin 500 mg PO DAILY 12/27/18 12/27/18 History Pioglitazone [Actos] 15 mg PO DAILY 12/27/18 12/27/18 History Allergies Allergy/AdvReac Type Severity Reaction Status Date / Time No Known Allergies Allergy Verified 06/25/19 23:43 Physical Exam Vitals: Vital Signs Temp Pulse Pulse Resp BP Pulse Ox 06/26/19 06:00 81 18 169/71 99 06/26/19 05:00 52 L 19 161/103 06/26/19 04:00 97.7 F 50 L 15 164/131 100 06/26/19 03:00 55 L 17 135/92 06/26/19 02:55 80 06/26/19 02:46 99 06/26/19 02:38 98.0 F 78 14 129/69 99 06/26/19 01:40 78 06/26/19 01:35 98.6 F 85 14 146/90 100 06/26/19 00:40 97.9 F 95 14 141/67 100 06/25/19 23:40 121 H 06/25/19 23:36 98.3 F 121 H 12 176/84 88 L 06/25/19 23:25 36 L 4 L 53/38 76 L 06/25/19 23:20 91 L Intake and Output 06/25/19 06/26/19 06/26/19 22:59 06:59 14:59 Intake Total 212.492 Output Total 690 Balance -477.508 Intake: IV 200 Sodium Chloride 0.9% 1, 200 000 ml @ 50 mls/hr IV . Q20H [facility] Rx#:[id number] Intake, IV Titration 12.492 Amount Propofol 1,000 mg In 12.492 Empty Bag 1 bag @ Titrate IV .Q0M ONE Rx#: [id number] Output: Urine 690 Uretheral (Fernández) 45 Other: Voiding Method Indwelling Catheter Weight 122.47 kg Gen. appearance, comfortable likely distress currently on propofol and 4 mg of Ativan was given as the patient was having seizure-like jerky body activity involving the upper extremities and that had somewhat tonic-clonic in nature. This has subsided after being given Ativan. Head exam was generally normal. There was no scleral icterus or corneal arcus. Mucous membranes were moist. Neck was supple and without jugular venous distension, thyromegaly, or carotid bruits. Carotids were easily palpable bilaterally. There was no adenopathy. Lungs reveal bilateral breath sounds. No wheezes or rhonchi early crackles. Cardiac exam revealed the PMI to be normally situated and sized. The rhythm was regular and no extrasystoles were noted during several minutes of auscultation. The first and second heart sounds were normal and physiologic splitting of the second heart sound was noted. There were no murmurs, rubs, clicks, or gallops. Abdomen is obese soft nontender. No direct tenderness rebound tensile guarding. No organomegaly. Extremities reveal trace edema and there is no cyanosis or clubbing at this point in time. Neurologically the patient is deeply sedated with propofol. Visible tonic- clonic activity was noted earlier prior to being given Ativan 4 mg. Pupils are equal and symmetrical to light. No nystagmus. No clonus. No rigidity. Motor function cannot be assessed. Very weak cough and gag. She is going into a tonic posture whenever she is stimulated. Results - Laboratory Findings CBC and BMP: 06/26/19 04:24 06/26/19 04:24 ABG ABG pH 7.36 (7.35-7.45) 06/26/19 03:56 ABG pCO2 47 mmHg (35-45) H 06/26/19 03:56 ABG pO2 157 mmHg (83-108) H 06/26/19 03:56 ABG O2 Saturation 99.1 % (94-97) H 06/26/19 03:56 PT/INR, D-dimer PT 9.4 sec (9.0-12.0) 06/25/19 23:28 INR 0.8 (<1.2) 06/25/19 23:28 Abnormal lab findings: Abnormal Labs 06/25/19 06/25/19 06/25/19 23:28 23:28 23:28 WBC 16.0 H RBC 3.58 L Hgb 10.2 L Hct 32.9 L Neutrophils # 9.6 H Lymphocytes # 4.9 H Basophils # 0.3 H APTT ABG pH ABG pCO2 ABG pO2 ABG HCO3 ABG Total CO2 ABG O2 Saturation Potassium 6.2 H* BUN 45 H Creatinine 2.03 H Glucose 295 H POC Glucose (mg/dL) Plasma Lactic Acid Jaylan 5.5 H* AST ALT Alkaline Phosphatase 152 H Urine Protein Urine Glucose (UA) Urine Blood Urine RBC Urine Bacteria Urine Mucus 06/25/19 06/25/19 06/25/19 23:28 23:48 23:55 WBC RBC Hgb Hct Neutrophils # Lymphocytes # Basophils # APTT 21.9 L ABG pH ABG pCO2 ABG pO2 ABG HCO3 ABG Total CO2 ABG O2 Saturation Potassium BUN Creatinine Glucose POC Glucose (mg/dL) 330 H Plasma Lactic Acid Jaylan AST ALT Alkaline Phosphatase Urine Protein 2+ H Urine Glucose (UA) 3+ H Urine Blood Trace H Urine RBC 9 H Urine Bacteria Rare H Urine Mucus Rare H 06/26/19 06/26/19 06/26/19 00:30 01:49 02:18 WBC RBC Hgb Hct Neutrophils # Lymphocytes # Basophils # APTT ABG pH 7.21 L ABG pCO2 56 H ABG pO2 >400 H ABG HCO3 ABG Total CO2 ABG O2 Saturation 99.0 H Potassium 6.5 H* BUN Creatinine Glucose POC Glucose (mg/dL) 206 H Plasma Lactic Acid Jaylan AST ALT Alkaline Phosphatase Urine Protein Urine Glucose (UA) Urine Blood Urine RBC Urine Bacteria Urine Mucus 06/26/19 06/26/19 06/26/19 03:20 03:56 04:24 WBC 16.7 H RBC 3.39 L Hgb 9.9 L Hct 30.9 L Neutrophils # 15.2 H Lymphocytes # Basophils # APTT ABG pH ABG pCO2 47 H ABG pO2 157 H ABG HCO3 27 H ABG Total CO2 28 H ABG O2 Saturation 99.1 H Potassium BUN Creatinine Glucose POC Glucose (mg/dL) 233 H Plasma Lactic Acid Jaylan AST ALT Alkaline Phosphatase Urine Protein Urine Glucose (UA) Urine Blood Urine RBC Urine Bacteria Urine Mucus 06/26/19 04:24 WBC RBC Hgb Hct Neutrophils # Lymphocytes # Basophils # APTT ABG pH ABG pCO2 ABG pO2 ABG HCO3 ABG Total CO2 ABG O2 Saturation Potassium 6.3 H* BUN 49 H Creatinine 1.85 H Glucose 275 H POC Glucose (mg/dL) Plasma Lactic Acid Jaylan AST 105 H ALT 91 H Alkaline Phosphatase 140 H Urine Protein Urine Glucose (UA) Urine Blood Urine RBC Urine Bacteria Urine Mucus - Diagnostic Findings Chest x-ray: image reviewed Assessment and Plan Plan: 1 acute hypoxic respiratory failure/pulmonary edema 2 acute respiratory arrest causing subsequent cardiac arrest. Going back to the Court sheets, the patient was resuscitated between 2327 and 2335 during which the heart rate was in the low 20s. She was in sinus bradycardia. I'm not sure if pulse was present at this point in time. She received a total of 2 epinephrine is a 1 atropine and 1 bicarb. The patient was unresponsive. She was intubated and placed on a mechanical ventilator and subsequently her hemodynamics improved. 3 episodic seizure activity noted on clinical grounds. The patient is on propofol and she was given 4 mg of Ativan which somewhat suppressed her ongoing seizure activity. I also noted the patient is doing some decerebrate posture upon stimulation. As such I'm not sure if the patient was seizing as an outpatient and she developed an acute lung injury/aspiration which led into respiratory failure and then emergency admission. His sequently, it's possible that the patient came in with pulmonary edema went into acute cardio pulmonary arrest and subsequently developed hypoxic encephalopathy and these are manifestations of anoxic encephalopathy/myoclonic jerks. In any rate, the patient is having a stat EEG. CAT scan of the brain showed an old occipital infarct on the left. I was ordered. Neurology evaluation needs to be done as soon as possible. 4 acute kidney injury, improving 5 acute hyperkalemia, being treated 6 acute lactic acidosis, improving 7 obesity 8 multiple sclerosis 9 diabetes mellitus Plan Stat EEG Keep the patient on propofol Ativan was given 4 mg IV push Keppra 1 g every 12 hours Immediate neurology evaluation and transfer this patient to a neurologic service either the care of [facility] or [facility] Echocardiogram Vent support at a current ventilator settings were noted Manage hyperkalemia and repeat the potassium levels. Appropriate treatment with calcium gluconate bicarb and D50 insulin was given IV fluids with normal saline today to of 100 mL an hour We will establish IV access and lines DVT and GI prophylaxis with IV Protonix and subcu heparin Obtain cultures including sputum and blood Empiric antibiotic coverage IV Zosyn Urine output is adequate for now Urine drug screen ProBNP level We'll continue to follow. Condition is critical and the patient will likely to be transferred out for close neurologic monitoring and consultation. The transfer process will be initiated. Time with Patient: Greater than 30
[2019-06-26 09:55] LABS: Glucose,Whole Blood 407 mg/dL (75-99)
[2019-06-26] MEDS ORDERED: CISATRACURIUM 2 MG/ML 5 ML VIAL IV ONE (10:15)
[2019-06-26 10:59] VITALS: TEMP 99
--- NOTE | 2019-06-26 11:12 | CONS ---
CONSULTATION Ruby Craft is a 48-year-old lady with a probable underlying diagnosis of multiple sclerosis, also had some issues with difficulty in breathing and she came into the hospital. She has apparently type 2 diabetes, hypertension, hypercholesterolemia, some anemia of unclear etiology in the past and had extensive workup for a sleep study performed when she was found not to have sleep issues. She has multiple sclerosis and her activity has not been that much. However, she came into the hospital, in the emergency room with shortness of breath, had a coughing bout and for about an hour prior to arrival, she was having difficulty breathing. After she came in through the triage, she was wheeled into the emergency room and she became apneic, stopped breathing, had bradycardia, was immediately intubated. The down time was very few according to the verbal reports I received of maybe 10 minutes or less, but now she is on the vent. Diprivan drip is on and she is having some seizure activity. It is unclear if she had any asystole or bradycardia. This information is not available at this time. At the time of my evaluation, she is on a ventilator, having some involuntary movements. I reviewed the ER note and it appears that she stopped breathing, became cyanotic and then her pulse went down and she was pulseless for a while. Resuscitation was initiated. She also had a CPR, received epinephrine, atropine for bradycardia, then regained the pulses. She is not on pressors, but potassium is about 6.3 and she is receiving insulin, bicarb and glucose for her hyperkalemia. The patient also had a CT scan performed and the study revealed no acute intracranial abnormality, but there was old occipital infarct. PAST MEDICAL HISTORY: Past medical history is remarkable for type 2 diabetes, hyperlipidemia, multiple sclerosis, anemia, hypertension. She is status post uterine ablation, dental work. She has a question of some bipolar disorder as well. ALLERGIES: None. MEDICATIONS: Include she takes insulin, niacin, Actos, hydralazine, carvedilol, magnesium supplements, also takes pravastatin 40 mg daily, aspirin 81 mg daily, iron supplements and Januvia. Patient's septic workup is in progress and she is negative for influenza. PHYSICAL EXAMINATION: On examination, her blood pressure is 150/70, pulse rate is about 80. HEENT unremarkable. Fundus was not examined by me. Neck is supple. There is JVD of 1 cm. No carotid bruit. Heart exam reveals S1, S2 with some tachycardia. No significant murmurs. Lungs reveal bilateral scattered rhonchi. Abdomen is soft. Lower extremities revealed diminished pulses. Central nervous system assessment was not performed. EKG revealed sinus tachycardia and no acute changes. IMPRESSION: 1. Acute respiratory arrest and subsequently also developed significant bradycardia, was pulseless, requiring CPR and resuscitation. 2. Multiple sclerosis by history. 3. History of hypertension. 4. Type 2 diabetes with hyperkalemia. 5. Hypertension. 6. Hyperlipidemia. 7. Probable acute kidney injury with her creatinine in the range of 1.8 or so. RECOMMENDATIONS: I am recommending that we obtain serial troponins, perform an echocardiogram to assess LV function. Check a BNP level, a D-dimer and obtain another EKG. I discussed my thoughts in detail with the nurse. There was no family available. Prognosis remains quite guarded in this patient. Hyperkalemia issue is being addressed already by Dr. Eisenberg and patient is receiving bicarb and has received insulin. Prognosis remains guarded. MMODL / IJN: [id number] /
[2019-06-26 11:24] LABS: Glucose,Whole Blood 409 mg/dL (75-99)
[2019-06-26] MEDS ORDERED: INSULIN ASPART (NovoLOG) 100 UNIT/ML VIAL SQ ONE (11:45)
[2019-06-26] MEDS ORDERED: LORazepam Vial 25 MG in DEXTROSE 5% IN WATER 238 ML IV SCH ×2 (12:00)
[2019-06-26 12:50] LABS: Glucose,Whole Blood 412 mg/dL (75-99)
[2019-06-26 13:20] VITALS: BP 132/60
--- NOTE | 2019-06-26 13:34 | P.HPIM ---
History of Present Illness H&P Date: 06/26/19 This is a 48-year-old obese female with significant past medical history of MS, diabetes, peripheral neuropathy, hypertension, hyperlipidemia, and anemia. Patient was having difficulty breathing throughout the day approximate one hour prior to arrival to the emergency room she developed increased shortness of breath and her decided to bring her in. Upon arrival to triage the patient was screaming that she could not breathe and was filled into the emergency room eventually she became cyanotic and apneic and went into full respiratory failure. Patient was noted to be in sinus bradycardia at with palpable pulses. She did receive a brief resuscitation with CPR. The patient received a total of 2 doses of epinephrine and atropine and one dose of bicarb infusion. The resuscitation process lasted approximate 10 minutes. The patient was intubated and placed on mechanical ventilation. Postintubation chest x-ray showed acute pulmonary edema. Patient is currently intubated with a 7.5 ET tube. Patient currently is found to have acute kidney injury. With creatinine 2.03 and a potassium 6.2, lactic acid 5.5. Hyperkalemia was treated with, nation of D50 and insulin in addition to bicarb. Patient's repeat potassium this morning 5.1. She was treated again with D50 and insulin in addition to bicarb. Patient was noted to have jerky body movements brief conic clonic in nature while on propofol at 40 mics per KG per minute. The movement of suspected seizures. A CAT scan of the brain was done that showed no acute abnormalities. 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 He patient continues to have the jerky body movements every 30 seconds to a minute. She has been given 40 mg of Ativan and Keppra. Chest x-ray shows pulmonary edema. Patient continues to be assist mode ventilation with a rate of 80 and tidal volume of 450 FiO2 of 60% with a PEEP of 5. Patient remains afebrile WBC 16, influenza was negative. Troponins were negative. Lactic acid is 0.9 at this time. Review of Systems ROS unobtainable: due to endotracheal tube Past Medical History Past Medical History: Diabetes Mellitus, Hyperlipidemia, Hypertension Additional Past Medical History / Comment(s): MS, obesity, diabetes mellitus type 2, diabetic peripheral neuropathy History of Any Multi-Drug Resistant Organisms: None Reported Past Surgical History: Tubal Ligation, Uterine Ablation Additional Past Surgical History / Comment(s): TEETH REMOVAL Past Psychological History: Anxiety, Bipolar, Depression Smoking Status: Current every day smoker Past Alcohol Use History: Occasional Past Drug Use History: None Reported - Past Family History Mother History Unknown: Yes Family Medical History: Congestive Heart Failure (CHF) Father History Unknown: Yes Family Medical History: Coronary Artery Disease (CAD), Myocardial Infarction (TN) Medications and Allergies Home Medications Medication Instructions Recorded Confirmed Type Avonex 1 injection IM TU@1900 10/02/14 12/27/18 History Ferrous Sulfate [Feosol] 325 mg PO BID 10/02/14 06/26/19 History lamoTRIgine [LaMICtal] 100 mg PO QAM 10/02/14 06/26/19 History sitaGLIPtin [Januvia] 100 mg PO DAILY 10/02/14 06/26/19 History Amitriptyline HCl [Elavil] 25 mg PO HS 07/22/16 06/26/19 History Pravastatin Sodium [Pravachol] 40 mg PO HS 12/21/16 06/26/19 History lamoTRIgine [LaMICtal] 150 mg PO HS 12/21/16 06/26/19 History hydrALAZINE HCL [Apresoline] 100 mg PO TID 12/20/18 06/26/19 History Baclofen [Lioresal] 20 mg PO TID 12/27/18 06/26/19 History Carvedilol 25 mg PO BID 12/27/18 06/26/19 History FLUoxetine HCL [PROzac] 20 mg PO DAILY 12/27/18 06/26/19 History Furosemide [Lasix] 20 mg PO BID 12/27/18 06/26/19 History Gabapentin [Neurontin] 400 mg PO TID 12/27/18 06/26/19 History Insulin Glargine,Hum.rec.anlog 35 unit SQ HS 12/27/18 06/26/19 History [Basaglar Kwikpen U-100] Insulin Lispro [Admelog] 2 - 12 unit SQ AC-TID 12/27/18 06/26/19 History Pioglitazone [Actos] 15 mg PO DAILY 12/27/18 06/26/19 History Ergocalciferol [Vitamin D2] 50,000 unit PO Q30D 06/26/19 06/26/19 History Losartan Potassium [Cozaar] 25 mg PO BID 06/26/19 06/26/19 History Magnesium Oxide 400 mg PO BID 06/26/19 06/26/19 History amLODIPine [Norvasc] 5 mg PO DAILY 06/26/19 06/26/19 History Allergies Allergy/AdvReac Type Severity Reaction Status Date / Time No Known Allergies Allergy Verified 06/25/19 23:43 Physical Exam Vitals: Vital Signs Temp Pulse Pulse Resp BP Pulse Ox 06/26/19 11:00 97 18 186/84 98 06/26/19 10:00 82 18 149/70 98 06/26/19 09:00 76 18 126/83 99 06/26/19 08:00 99 F 78 18 144/63 99 06/26/19 07:00 79 12 127/117 99 06/26/19 06:00 81 18 169/71 99 06/26/19 05:00 52 L 19 161/103 06/26/19 04:00 97.7 F 50 L 15 164/131 100 06/26/19 03:00 55 L 17 135/92 06/26/19 02:55 80 06/26/19 02:46 99 06/26/19 02:38 98.0 F 78 14 129/69 99 06/26/19 01:40 78 06/26/19 01:35 98.6 F 85 14 146/90 100 06/26/19 00:40 97.9 F 95 14 141/67 100 06/25/19 23:40 121 H 06/25/19 23:36 98.3 F 121 H 12 176/84 88 L 06/25/19 23:25 36 L 4 L 53/38 76 L 06/25/19 23:20 91 L Intake and Output 06/25/19 06/26/19 06/26/19 22:59 06:59 14:59 Intake Total 206.466 0715.000 Output Total 690 950 Balance -477.508 350.000 Intake: IV 200 1200 Bicarb 100 Calcium Gluconate 1 gm In 100 Sodium Chloride 0.9% 100 ml @ 100 mls/hr IVPB ONCE ONE Rx#:[id number] Dextrose 10 % in Water 500 250 ml @ 999 mls/hr IV ONCE ONE Rx#:[id number] Piperacillin-Tazobactam 3 100 .375 gm In Sodium Chloride 0.9% 100 ml @ 25 mls/hr IVPB Q8H [facility] Rx#: [id number] Sodium Chloride 0.9% 1, 200 300 000 ml @ 50 mls/hr IV . Q20H [facility] Rx#:[id number] levETIRAcetam IV 1,000 mg 100 In Saline 1 100ml.bag @ 400 mls/hr IVPB Q12HR [facility] Rx#:[id number] Intake, IV Titration 12.492 100.000 Amount Propofol 1,000 mg In 12.492 Empty Bag 1 bag @ Titrate IV .Q0M [facility] Rx#: [id number] Propofol 1,000 mg In 100.000 Empty Bag 1 bag @ Titrate IV .Q0M [facility] Rx#: [id number] Output: Urine 690 950 Uretheral (Fernández) 45 Other: Voiding Method Indwelling Catheter Weight 122.47 kg General Appearance: Seizure-like jerky body movements of the upper extremities, Connick posture when stimulated Neck HEENT: Supple, no lymphadenopathy, no thyroid enlargement, no carotid bruits. Lungs: Clear to auscultation without crackles or wheezes no rhonchi, no deformity. Heart: Regular rate and rhythm, S1, S2 normal, no murmur, rub or gallop. Back: Symmetric, no curvature, ROM normal, no CVA tenderness. Abdomen: Obese Soft, non-tender, no rebound or rigidity, no hepatosplenomegaly. Extremities: Extremities normal, atraumatic, no cyanosis trace edema. Pulses: 2+ and symmetric. Skin: Skin color, texture, tugor normal, no rashes or lesions. Neurologic: Intubated with sedation, pupils equal and reactive symmetrically to light, no nystagmus. Results CBC & Chem 7: 06/26/19 04:24 06/26/19 09:49 Labs: Abnormal Lab Results - Last 24 Hours (Table) 06/25/19 06/25/19 06/25/19 Range/Units 23:28 23:28 23:28 WBC 16.0 H (3.8-10.6) k/uL RBC 3.58 L (3.80-5.40) m/uL Hgb 10.2 L (11.4-16.0) gm/dL Hct 32.9 L (34.0-46.0) % Neutrophils # 9.6 H (1.3-7.7) k/uL Lymphocytes # 4.9 H (1.0-4.8) k/uL Basophils # 0.3 H (0-0.2) k/uL APTT (22.0-30.0) sec D-Dimer (<0.60) mg/L FEU ABG pH (7.35-7.45) ABG pCO2 (35-45) mmHg ABG pO2 (83-108) mmHg ABG HCO3 (21-25) mmol/L ABG Total CO2 (19-24) mmol/L ABG O2 Saturation (94-97) % Potassium 6.2 H* (3.5-5.1) mmol/L BUN 45 H (7-17) mg/dL Creatinine 2.03 H (0.52-1.04) mg/dL Glucose 295 H (74-99) mg/dL POC Glucose (mg/dL) (75-99) mg/dL Plasma Lactic Acid Jaylan 5.5 H* (0.7-2.0) mmol/L AST (14-36) U/L ALT (4-34) U/L Alkaline Phosphatase 152 H (38-126) U/L Troponin I (0.000-0.034) ng/mL Urine Protein (Negative) Urine Glucose (UA) (Negative) Urine Blood (Negative) Urine RBC (0-5) /hpf Urine Bacteria (None) /hpf Urine Mucus (None) /hpf 06/25/19 06/25/19 06/25/19 Range/Units 23:28 23:48 23:55 WBC (3.8-10.6) k/uL RBC (3.80-5.40) m/uL Hgb (11.4-16.0) gm/dL Hct (34.0-46.0) % Neutrophils # (1.3-7.7) k/uL Lymphocytes # (1.0-4.8) k/uL Basophils # (0-0.2) k/uL APTT 21.9 L (22.0-30.0) sec D-Dimer (<0.60) mg/L FEU ABG pH (7.35-7.45) ABG pCO2 (35-45) mmHg ABG pO2 (83-108) mmHg ABG HCO3 (21-25) mmol/L ABG Total CO2 (19-24) mmol/L ABG O2 Saturation (94-97) % Potassium (3.5-5.1) mmol/L BUN (7-17) mg/dL Creatinine (0.52-1.04) mg/dL Glucose (74-99) mg/dL POC Glucose (mg/dL) 330 H (75-99) mg/dL Plasma Lactic Acid Jaylan (0.7-2.0) mmol/L AST (14-36) U/L ALT (4-34) U/L Alkaline Phosphatase (38-126) U/L Troponin I (0.000-0.034) ng/mL Urine Protein 2+ H (Negative) Urine Glucose (UA) 3+ H (Negative) Urine Blood Trace H (Negative) Urine RBC 9 H (0-5) /hpf Urine Bacteria Rare H (None) /hpf Urine Mucus Rare H (None) /hpf 06/26/19 06/26/19 06/26/19 Range/Units 00:30 01:49 02:18 WBC (3.8-10.6) k/uL RBC (3.80-5.40) m/uL Hgb (11.4-16.0) gm/dL Hct (34.0-46.0) % Neutrophils # (1.3-7.7) k/uL Lymphocytes # (1.0-4.8) k/uL Basophils # (0-0.2) k/uL APTT (22.0-30.0) sec D-Dimer (<0.60) mg/L FEU ABG pH 7.21 L (7.35-7.45) ABG pCO2 56 H (35-45) mmHg ABG pO2 >400 H (83-108) mmHg ABG HCO3 (21-25) mmol/L ABG Total CO2 (19-24) mmol/L ABG O2 Saturation 99.0 H (94-97) % Potassium 6.5 H* (3.5-5.1) mmol/L BUN (7-17) mg/dL Creatinine (0.52-1.04) mg/dL Glucose (74-99) mg/dL POC Glucose (mg/dL) 206 H (75-99) mg/dL Plasma Lactic Acid Jaylan (0.7-2.0) mmol/L AST (14-36) U/L ALT (4-34) U/L Alkaline Phosphatase (38-126) U/L Troponin I (0.000-0.034) ng/mL Urine Protein (Negative) Urine Glucose (UA) (Negative) Urine Blood (Negative) Urine RBC (0-5) /hpf Urine Bacteria (None) /hpf Urine Mucus (None) /hpf 06/26/19 06/26/19 06/26/19 Range/Units 03:20 03:56 04:24 WBC 16.7 H (3.8-10.6) k/uL RBC 3.39 L (3.80-5.40) m/uL Hgb 9.9 L (11.4-16.0) gm/dL Hct 30.9 L (34.0-46.0) % Neutrophils # 15.2 H (1.3-7.7) k/uL Lymphocytes # (1.0-4.8) k/uL Basophils # (0-0.2) k/uL APTT (22.0-30.0) sec D-Dimer (<0.60) mg/L FEU ABG pH (7.35-7.45) ABG pCO2 47 H (35-45) mmHg ABG pO2 157 H (83-108) mmHg ABG HCO3 27 H (21-25) mmol/L ABG Total CO2 28 H (19-24) mmol/L ABG O2 Saturation 99.1 H (94-97) % Potassium (3.5-5.1) mmol/L BUN (7-17) mg/dL Creatinine (0.52-1.04) mg/dL Glucose (74-99) mg/dL POC Glucose (mg/dL) 233 H (75-99) mg/dL Plasma Lactic Acid Jaylan (0.7-2.0) mmol/L AST (14-36) U/L ALT (4-34) U/L Alkaline Phosphatase (38-126) U/L Troponin I (0.000-0.034) ng/mL Urine Protein (Negative) Urine Glucose (UA) (Negative) Urine Blood (Negative) Urine RBC (0-5) /hpf Urine Bacteria (None) /hpf Urine Mucus (None) /hpf 06/26/19 06/26/19 06/26/19 Range/Units 04:24 09:49 09:49 WBC (3.8-10.6) k/uL RBC (3.80-5.40) m/uL Hgb (11.4-16.0) gm/dL Hct (34.0-46.0) % Neutrophils # (1.3-7.7) k/uL Lymphocytes # (1.0-4.8) k/uL Basophils # (0-0.2) k/uL APTT (22.0-30.0) sec D-Dimer 6.67 H (<0.60) mg/L FEU ABG pH (7.35-7.45) ABG pCO2 (35-45) mmHg ABG pO2 (83-108) mmHg ABG HCO3 (21-25) mmol/L ABG Total CO2 (19-24) mmol/L ABG O2 Saturation (94-97) % Potassium 6.3 H* (3.5-5.1) mmol/L BUN 49 H (7-17) mg/dL Creatinine 1.85 H (0.52-1.04) mg/dL Glucose 275 H (74-99) mg/dL POC Glucose (mg/dL) (75-99) mg/dL Plasma Lactic Acid Jaylan (0.7-2.0) mmol/L AST 105 H (14-36) U/L ALT 91 H (4-34) U/L Alkaline Phosphatase 140 H (38-126) U/L Troponin I 0.082 H* (0.000-0.034) ng/mL Urine Protein (Negative) Urine Glucose (UA) (Negative) Urine Blood (Negative) Urine RBC (0-5) /hpf Urine Bacteria (None) /hpf Urine Mucus (None) /hpf 06/26/19 06/26/19 06/26/19 Range/Units 09:53 11:23 12:49 WBC (3.8-10.6) k/uL RBC (3.80-5.40) m/uL Hgb (11.4-16.0) gm/dL Hct (34.0-46.0) % Neutrophils # (1.3-7.7) k/uL Lymphocytes # (1.0-4.8) k/uL Basophils # (0-0.2) k/uL APTT (22.0-30.0) sec D-Dimer (<0.60) mg/L FEU ABG pH (7.35-7.45) ABG pCO2 (35-45) mmHg ABG pO2 (83-108) mmHg ABG HCO3 (21-25) mmol/L ABG Total CO2 (19-24) mmol/L ABG O2 Saturation (94-97) % Potassium (3.5-5.1) mmol/L BUN (7-17) mg/dL Creatinine (0.52-1.04) mg/dL Glucose (74-99) mg/dL POC Glucose (mg/dL) 407 H 409 H 412 H (75-99) mg/dL Plasma Lactic Acid Jaylan (0.7-2.0) mmol/L AST (14-36) U/L ALT (4-34) U/L Alkaline Phosphatase (38-126) U/L Troponin I (0.000-0.034) ng/mL Urine Protein (Negative) Urine Glucose (UA) (Negative) Urine Blood (Negative) Urine RBC (0-5) /hpf Urine Bacteria (None) /hpf Urine Mucus (None) /hpf Thrombosis Risk Factor Assmnt - Choose All That Apply Any of the Below Risk Factors Present?: Yes Each Factor Represents 1 point: Abnormal pulmonary function (COPD), Age 41-60 years, Heart failure (<1month), Medical pt on bed rest, Obesity (BMI >25) Each Risk Factor Represents 2 Points: Patient confined to bed Thrombosis Risk Factor Assessment Total Risk Factor Score: 7 Thrombosis Risk Factor Assessment Level: High Risk Assessment and Plan Plan: 1. Acute respiratory arrest subsequent cardiac arrest with aspiration, patient currently in ICU with pulmonology consult. Patient is currently intubated with propofol sedation. Patient received 10 minutes of CPR while in the emergency room with noted sinus bradycardia she received 2 epinephrine and 1 atropine [address] Patient remained unresponsive. After intubation patient subsequently hemodynamically improved. Continue with sedation. Stat echo. Obtain blood and sputum cultures,and empiric anabiotic coverage of IV Zosyn 2. Acute and chronic respiratory failure/pulmonary edema, as noted above 3. Episodic seizure activity. Patient is on for her fall and Ativan. It is unclear if the patient had seizure activity outpatient and developed acute lung injury aspiration which led to the respiratory failure or if patient's had acute respiratory failure related to pulmonary edema resulting in cardiopulmonary arrest and developed hypoxic encephalopathy. Stat EEG. CT of the brain results noted above. Consult neurology. Transfer the patient to neurological service. Keppra 1 g every 12 hours 4. Acute kidney injury 5. Hyperkalemia. Repeat potassium level 6. Acute lactic acidosis 7. Multiple sclerosis 8. Diabetes 9. Obesity 10. Hyperlipidemia 12. Hypertension 13. DVT prophylaxis. Subcu heparin 14. GI prophylaxis IV Protonix Disposition: Transfer to hospital with neurological service. Impression and plan of care have been directed as dictated by the signing physician. Selina Noble nurse practitioner acting as scribe for signing physician.
[2019-06-26 15:44] VITALS: PULSE 78
--- NOTE | 2019-06-26 15:58 | ECHOF ---
Referral Reason:cardiac arrest MEASUREMENTS -------- HEIGHT: 160.0 cm WEIGHT: 122.5 kg BP: 186/84 RVIDd: 2.5 cm (< 3.3) IVSd: 1.3 cm (0.6 - 1.1) LVIDd: 4.8 cm (3.9 - 5.3) LVPWd: 1.2 cm (0.6 - 1.1) IVSs: 1.7 cm LVIDs: 3.4 cm LVPWs: 1.7 cm LA Diam: 3.8 cm (2.7 - 3.8) LAESV Index (A-L): 30.44 ml/m Ao Diam: 3.0 cm (2.0 - 3.7) AV Cusp: 2.0 cm (1.5 - 2.6) MV EXCURSION: 18.742 mm (> 18.000) MV EF SLOPE: 104 mm/s (70 - 150) EPSS: 0.8 cm MV E Panfilo: 1.29 m/s MV DecT: 106 ms MV A Panfilo: 1.14 m/s MV E/A Ratio: 1.13 RAP: 5.00 mmHg RVSP: 49.58 mmHg FINDINGS -------- Sinus rhythm. This was a technically adequate study. The left ventricular size is normal. There is mild concentric left ventricular hypertrophy. Overa ll left ventricular systolic function is normal with, an EF between 55 - 60 %. The right ventricle is normal in size. LA is midly dilated 29-33ml/m2. The right atrium is normal in size. Interatrial and interventricular septum intact. The aortic valve is trileaflet and appears structurally normal. Mild mitral regurgitation is present. Mild tricuspid regurgitation present. There is moderate pulmonary hypertension. The right ventric ular systolic pressure, as measured by Doppler, is 49.58mmHg. Trace/mild (physiologic) pulmonic regurgitation. The aortic root size is normal. Small inferior vena cava consistent with a right atrial pressure of 5 mmHg. There is no pericardial effusion. CONCLUSIONS -------- 1. Sinus rhythm. 2. This was a technically adequate study. 3. The left ventricular size is normal. 4. There is mild concentric left ventricular hypertrophy. 5. Overall left ventricular systolic function is normal with, an EF between 55 - 60 %. 6. The right ventricle is normal in size. 7. LA is midly dilated 29-33ml/m2. 8. The right atrium is normal in size. 9. Interatrial and interventricular septum intact. 10. The aortic valve is trileaflet and appears structurally normal. 11. Mild mitral regurgitation is present. 12. Mild tricuspid regurgitation present. 13. There is moderate pulmonary hypertension. 14. The right ventricular systolic pressure, as measured by Doppler, is 49.58mmHg. 15. Trace/mild (physiologic) pulmonic regurgitation. 16. The aortic root size is normal. 17. Small inferior vena cava consistent with a right atrial pressure of 5 mmHg. 18. There is no pericardial effusion. [employer] OPERATOR: Julissa Arizmendi RDCS
[2019-06-26 22:39] LABS: Appearance,Urine Clear (Clear); Bacteria,Urine Rare /hpf; Bilirubin,Urine Negative (Negative); Blood,Urine Small (Negative); Color,Urine Light Yellow; Glucose,Urine (UA) 3+ (Negative); Ketones,Urine Negative (Negative); Leukocyte Esterase,Urine Negative (Negative); Mucus,Urine Rare /hpf; Nitrite,Urine Negative (Negative); Protein,Urine 2+ (Negative); RBC,Urine 6 /hpf (0-5); Specific Gravity,Urine 1.012 (1.001-1.035); Squamous Epithelial Cell,Urine 1 /hpf (0-4); Urobilinogen,Urine <2.0 mg/dL (<2.0); WBC,Urine 2 /hpf (0-5)
[2019-06-27 10:56] LABS: Urine Alcohol Negative (Negative); Urine Barbiturate Negative (Negative); Urine Cocaine Negative (Negative); Urine Methadone Negative (Negative); Urine Opiates Negative (Negative); Urine Phencyclidine Negative (Negative)
--- NOTE | 2019-06-27 11:59 | EEG ---
ELECTROENCEPHALOGRAM REPORT PROCEDURE DATE: 06/26/2019. ELECTROENCEPHALOGRAM (EEG) REPORT: TECHNIQUE: A routine 18 channel EEG was performed with video using the 10/20 international electrode placement system. HISTORY: The patient presented with respiratory distress and then cardiac arrest in the emergency room. Patient intubated. CURRENT MEDICATIONS: Propofol, Versed, Ativan, Keppra. STUDY DURATION: 57 minutes. FINDINGS: BACKGROUND: A sustained posterior dominant rhythm was not seen. ACTIVATION: Hyperventilation: Not performed. Photic stimulation: No driving seen. Sleep: Distinctive sleep stages not seen. ABNORMALITIES: Initially a burst suppression pattern was seen. The duration of suppression ranged anywhere from 3 seconds up to 30 seconds. Frequent generalized individual as well as paroxysmal bursts of spike wave discharges were seen. The frequency of these discharges was approximately 2-3 hertz. Some of the more prolonged bursts that is those lasting greater than 12 seconds include but are not limited to, 10:20:21, 10:21:24, 10:23:48, 10:30:40, 10:48:46. Those bursts which are longer than 10 seconds can be considered seizures. Some of these bursts did not have associated clinical symptoms, but in the 2nd half of the recording a greater portion of the bursts did have associated clinical symptoms including right hand twitch examples include but are not limited to, 10:30:26, 10:30:36, 10:32:20, 10:32:21, 10:32:43. IMPRESSION: Markedly abnormal EEG. 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 The generalized individual as well as paroxysmal bursts of spike wave discharges mentioned above are epileptiform in nature. This EEG also showed a burst suppression pattern. The bursts consisted of the generalized spikes as mentioned above, which are epileptiform in nature. 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 These findings were called to the intensive care physician at 12:36 pm on 06/26/2019. MMODL / IJN: [id number] / ILEANA
== END 2019-06-26 13:00 | disposition short-term general hospital (02) | DRG 208 ==
LOC: EC 23:15 → SUPCPDRO 23:15 → 2SICU 06-26 01:15
PROVIDERS: ADMIT Family Medicine; ATTEND Family Medicine
PROC: 5A12012 Performance of Cardiac Output, Single, Manual (ICD-10-PCS; principal; 2019-06-26)
PROC: 5A1935Z Respiratory Ventilation, Less than 24 Consecutive Hours (ICD-10-PCS; 2019-06-26)
PROC: 0BH17EZ Insertion of Endotracheal Airway into Trachea, Via Natural or Artificial Opening (ICD-10-PCS; 2019-06-26)
DX: J81.0 Acute pulmonary edema (principal); I46.9 Cardiac arrest, cause unspecified; J96.20 Acute and chronic respiratory failure, unspecified whether with hypoxia or hypercapnia; Z68.42 Body mass index [BMI] 45.0-49.9, adult; E87.2 Acidosis; N17.9 Acute kidney failure, unspecified; G93.1 Anoxic brain damage, not elsewhere classified; G35 Multiple sclerosis; D72.829 Elevated white blood cell count, unspecified; E11.42 Type 2 diabetes mellitus with diabetic polyneuropathy; E66.01 Morbid (severe) obesity due to excess calories; E78.5 Hyperlipidemia, unspecified; E87.5 Hyperkalemia; F17.210 Nicotine dependence, cigarettes, uncomplicated; F31.9 Bipolar disorder, unspecified; F41.9 Anxiety disorder, unspecified; I10 Essential (primary) hypertension; R56.9 Unspecified convulsions; Z79.4 Long term (current) use of insulin; Z79.82 Long term (current) use of aspirin; Z79.899 Other long term (current) drug therapy; Z82.49 Family history of ischemic heart disease and other diseases of the circulatory system; Z86.73 Personal history of transient ischemic attack (TIA), and cerebral infarction without residual deficits; T17.990A Other foreign object in respiratory tract, part unspecified in causing asphyxiation, initial encounter; E78.00 Pure hypercholesterolemia, unspecified; Z98.51 Tubal ligation status
CPT/HCPCS: 31500; 36415; 36600; 51702; 70450; 71045; 80053; 80306; 81001; 82550; 82805; 83605; 83735; 83880; 84100; 84132; 84145; 84484; 85025; 85379; 85610; 85730; 87040; 87070; 87205; 87502; 92950; 93005; 93306; 94002; 95812; 96365; 96375; 99291